=== PATIENT | male | born 1950 | race Caucasian/White ===

== ENCOUNTER 2016-12-09 11:39 | Inpatient (IN) | payer OTHER, MEDICARE ==
[2016-12-09] VITALS (9 sets, daily range): BP systolic 120–162; BP diastolic 66–86; PULSE 54–64; RESP 12–20; TEMP 97.7–98.9; O2SAT 94–95
[~2016-12-09] VITALS: Ht 188 cm; Wt 146.8 kg
[2016-12-09] MEDS ORDERED: METO50TA11 PO (12:25)
[2016-12-09] MEDS ORDERED: ROSU10 PO (12:25)
[2016-12-09 12:50] LABS: AUTOMATED NEUTROPHIL # 5.6 TH/MM3 (1.8-7.7); BASOPHIL % 0.4 % (0.0-2.0); EOSINOPHIL # 0.2 TH/MM3 (0-0.4); EOSINOPHIL % 2.4 % (0.0-4.0); HEMATOCRIT 43.5 % (39.0-51.0); HEMO FLAGS DIFF FINAL; LYMPH % 19.4 % (9.0-44.0); LYMPHOCYTE # 1.6 TH/MM3 (1.0-4.8); MEAN CELL VOLUME 83.8 FL (80.0-100.0); MEAN CORPUSCULAR HEMOGLOBIN 27.8 PG (27.0-34.0); MEAN CORPUSCULAR HGB CONC 33.2 % (32.0-36.0); MONO % 8.1 % (0.0-8.0); NEUT % 69.7 % (16.0-70.0); PLATELET COUNT 193 TH/MM3 (150-450); RED BLOOD COUNT 5.19 MIL/MM3 (4.50-5.90); RED CELL DISTRIBUTION WIDTH 13.9 % (11.6-17.2)
[2016-12-09 12:59] LABS: BICARBONATE 27.6 MEQ/L (21.0-32.0); POTASSIUM 4.2 MEQ/L (3.5-5.1)
--- NOTE | 2016-12-09 13:19 | RADRPT ---
EXAM DATE/TIME: 12/09/2016 12:28 [place] COMPARISON: No previous studies available for comparison. INDICATIONS : Patient has had chest pain since last night. MEDICAL HISTORY : Hypertension. SURGICAL HISTORY : None. ENCOUNTER: Initial ACUITY: 1 day PAIN SCORE: 4/10 LOCATION: chest FINDINGS: A single view of the chest demonstrates the lungs to be symmetrically aerated without evidence of mas s, infiltrate or effusion. The cardiomediastinal contours are unremarkable. Osseous structures are intact. CONCLUSION: Normal examination with a markedly elevated left hemidiaphragm. Manuel Burgess MD on December 09, 2016 at 13:17 Board Certified Radiologist. This report was verified electronically.
--- NOTE | 2016-12-09 13:54 | PD ---
HPI Chief Complaint: Chest Pain Time Seen by Provider: 13:53 Travel History International Travel<30 days: No Contact w/Intl Traveler<30days: No Traveled to known affect area: No History of Present Illness HPI 66-year-old male presents to the emergency department via EMS for evaluation of midsternal chest pain that started about 10 AM this morning. He states it did resolve on its own approximately a couple of hours. He received aspirin 325 mg via EMS. He states he declined nitroglycerin because he had it one time in the past and causing him to have a severe headache. The patient denies any history of cardiac problems. He denies ever having an SD in the past. He states he is from [place]. He discharge 66 and is not currently established with a primary care physician due to insurance changes. 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 He does report a history of A. fib, hypertension, hyperlipidemia. He states he currently takes metoprolol and Crestor. Patient denies having any stress test or cardiac catheterization recently. Patient states the pain is completely resolved at this time. He states the pain did not radiate. Other than recent travel from [place], he denies any recent travel or surgery. No hemoptysis. No leg edema. PFSH Past Medical History Cardiovascular Problems: Yes High Cholesterol: Yes Coronary Artery Disease: Yes Tetanus Vaccination: > 5 Years Past Surgical History Other Surgery: Yes (KNEE) Social History Alcohol Use: No Tobacco Use: No Substance Use: No Allergies-Medications (Allergen,Severity, Reaction): Coded Allergies: Demerol (Verified Allergy, Unknown, RASH, 12/09/16) Reported Meds & Prescriptions Reported Meds & Active Scripts Active Reported Metoprolol Succinate ER 24 HR (Metoprolol Succinate) 50 Mg Tab 50 Mg PO DAILY Crestor (Rosuvastatin Calcium) 10 Mg Tab 10 Mg PO HS Review of Systems Except as stated in HPI: all other systems reviewed are Neg Physical Exam Narrative GENERAL: Well-developed well-nourished obese male patient, afebrile. SKIN: Warm and dry. HEAD: Normocephalic. Atraumatic. EYES: No scleral icterus. No injection or drainage. NECK: Supple, trachea midline. No JVD or lymphadenopathy. CARDIOVASCULAR: Regular rate and rhythm without murmurs, gallops, or rubs. RESPIRATORY: Breath sounds equal bilaterally. No accessory muscle use. Lungs sounds are clear to auscultation. GASTROINTESTINAL: Abdomen soft, non-tender, nondistended. MUSCULOSKELETAL: No cyanosis, or edema. BACK: Nontender without obvious deformity. No CVA tenderness. Data Data Last Documented VS Vital Signs Date Time Temp Pulse Resp B/P Pulse Ox O2 Delivery O2 Flow Rate FiO2 12/09/16 12:16 97.7 57 20 162/80 95 Orders Electrocardiogram (12/09/16 12:25) Complete Blood Count With Diff (12/09/16 12:25) Basic Metabolic Panel (Bmp) (12/09/16 12:25) Ckmb (Isoenzyme) Profile (12/09/16 12:25) Troponin I (12/09/16 12:25) Iv Access Insert/Monitor (12/09/16 12:25) Chest, Single Ap (12/09/16 12:25) Heparin Infusion MONSE.Q1H (12/09/16 13:54) Heparin Inj (Heparin Inj) (12/09/16 14:00) Heparin Inj (Heparin Inj) (12/09/16 20:00) Heparin Inj (Heparin Inj) (12/09/16 20:00) Heparin-D5w Inj (Heparin-D5w Inj) (12/09/16 14:00) Act Partial Throm Time (Ptt) (12/09/16 13:54) Prothrombin Time / Inr (Pt) (12/09/16 13:54) Cbc No Diff, Includes Plts (12/09/16 13:54) Cbc No Diff, Includes Plts (12/12/16 06:00) Act Partial Throm Time (Ptt) (12/09/16 20:54) Occult Blood (Hemoccult) Stool (12/09/16 13:54) Consult Cardiology (12/09/16 ) Diet Npo (12/09/16 Dinner) Admit Order (Ed Use Only) (12/09/16 14:27) Labs Laboratory Tests Test 12/09/16 12/09/16 12:30 14:20 White Blood Count 8.0 TH/MM3 10.5 TH/MM3 Red Blood Count 5.19 MIL/MM3 5.34 MIL/MM3 Hemoglobin 14.4 GM/DL 14.9 GM/DL Hematocrit 43.5 % 45.3 % Mean Corpuscular Volume 83.8 FL 84.7 FL Mean Corpuscular Hemoglobin 27.8 PG 27.8 PG Mean Corpuscular Hemoglobin 33.2 % 32.9 % Concent Red Cell Distribution Width 13.9 % 13.6 % Platelet Count 193 TH/MM3 219 TH/MM3 Mean Platelet Volume 9.6 FL 9.8 FL Neutrophils (%) (Auto) 69.7 % Lymphocytes (%) (Auto) 19.4 % Monocytes (%) (Auto) 8.1 % Eosinophils (%) (Auto) 2.4 % Basophils (%) (Auto) 0.4 % Neutrophils # (Auto) 5.6 TH/MM3 Lymphocytes # (Auto) 1.6 TH/MM3 Monocytes # (Auto) 0.6 TH/MM3 Eosinophils # (Auto) 0.2 TH/MM3 Basophils # (Auto) 0.0 TH/MM3 CBC Comment DIFF FINAL Differential Comment Sodium Level 140 MEQ/L Potassium Level 4.2 MEQ/L Chloride Level 105 MEQ/L Carbon Dioxide Level 27.6 MEQ/L Anion Gap 7 MEQ/L Blood Urea Nitrogen 13 MG/DL Creatinine 1.06 MG/DL Estimat Glomerular Filtration 70 ML/MIN Rate Random Glucose 136 MG/DL Calcium Level 8.4 MG/DL Total Creatine Kinase 70 U/L Troponin I 0.14 NG/ML Prothrombin Time 11.6 SEC Prothromb Time International 1.0 RATIO Ratio Activated Partial 27.7 SEC Thromboplast Time MDM Medical Decision Making Medical Screen Exam Complete: Yes Emergency Medical Condition: Yes Medical Record Reviewed: Yes Interpretation(s) Last Impressions Chest X-Ray 12/09/16 1225 Signed Impressions: Service Date/Time: December 12:28 - CONCLUSION: Normal examination with a markedly elevated left hemidiaphragm. Manuel Burgess MD Differential Diagnosis STEMI versus NSTEMI versus reflux versus chest wall pain for selection abnormality versus pneumonia Narrative Course 66-year-old male presents to the emergency department for evaluation and midsternal chest pain. Patient was previously unable tolerate protocols were completed. CBC was unremarkable. BMP shows glucose of 136. CK is 70. Troponin is elevated 0.14. Chest x-ray showed no acute abnormality. EKG shows ST depression in V4, V5, V6. Patient is started on heparin drip for NSTEMI. Conduit Installer concaving machine operator is paged. I spoke to Dr. Larsen, fruit rancher concaving machine operator. He'll like the patient to be placed on heparin drip which was previously ordered. He also like nitroglycerin , which the patient declines. He would also like the patient to be nothing by mouth. [facility] is paged for admission. Dr. Tam accepted admission. I was notified that the patient has [employer] insurance and fruit rancher should be Dr. Phelps, not Dr. Larsen. I spoke to Dr. Pinzon would like the patient be nothing by mouth after midnight and stay on a heparin drip. Diagnosis Primary Impression: Non-ST elevation myocardial infarction (NSTEMI) Admitting Information Admitting Physician Requests: Admit Jeannine Krishnan Dec 09, 2016 13:54
[2016-12-09] MEDS ORDERED: HEPARIN-D5W INJ 250 ML IV SCH (14:00)
[2016-12-09] MEDS ORDERED: HEPARIN SODIUM - IV 10,000 UNITS/10 ML VIAL IV ONE (14:00)
[2016-12-09 15:23] LABS: HEMATOCRIT 45.3 % (39.0-51.0); MEAN CELL VOLUME 84.7 FL (80.0-100.0); MEAN CORPUSCULAR HEMOGLOBIN 27.8 PG (27.0-34.0); MEAN CORPUSCULAR HGB CONC 32.9 % (32.0-36.0); PLATELET COUNT 219 TH/MM3 (150-450); RED BLOOD COUNT 5.34 MIL/MM3 (4.50-5.90); RED CELL DISTRIBUTION WIDTH 13.6 % (11.6-17.2); REVIEW FLAG FINAL; WHITE BLOOD COUNT 10.5 TH/MM3 (4.0-11.0)
[2016-12-09] MEDS ORDERED: MORPHINE SULFATE 4 MG/ML INJ IV PRN (15:30)
[2016-12-09] MEDS ORDERED: SENNOSIDES 8.6 MG TAB PO PRN (15:30)
[2016-12-09] MEDS ORDERED: ACETAMINOPHEN 325 MG TAB PO PRN (15:30)
[2016-12-09] MEDS ORDERED: ONDANSETRON HCL 4 MG/2 ML VIAL IVP PRN (15:30)
[2016-12-09] MEDS ORDERED: SODIUM CHLORIDE 0.9% FLUSH 5 ML FLUSH FLUSH PRN (15:30)
[2016-12-09] MEDS ORDERED: NALOXONE HCL 0.4 MG/ML AMP IV PRN (15:30)
[2016-12-09 15:40] LABS: APTT (PATIENT) 27.7 SEC (24.3-30.1); PROTHROMBIN TIME - PATIENT 11.6 SEC (9.8-11.6)
[2016-12-09] MEDS ORDERED: ENALAPRILAT 1.25 MG/ML VIAL IV PUSH PRN (16:15)
--- NOTE | 2016-12-09 16:16 | HHI.HP ---
HPI Service [facility] Primary Care Physician Non-Staff Admission Diagnosis NSTEMI Diagnoses: Chief Complaint: Chest pain Travel History International Travel<30 Days: No Contact w/Intl Traveler <30 Da: No Traveled to Known Affected Are: No History of Present Illness The patient is a 66-year-old male with past medical history of atrial fibrillation and hypertension who is presenting to the hospital with chest pain. He said he was sitting down this morning when all of a sudden he developed chest pain in the center of his chest. He said the sensation was stabbing in nature and he rated the pain as an 8 out of 10 in severity. He said once the chest pain occurred it stayed. He did not have any sweating or shortness of breath associated with it. He also denied any palpitations. He did feel tired during the episode. He called for EMS and refused the nitroglycerin because he has had a bad experience with that in the past. He said he has had chest pain which turned out to be secondary to hiatal hernia and when he received nitroglycerin at that time he had a significant headache. The patient received aspirin and was transported to the hospital. He said his chest pain has since gone away. He says he had an echocardiogram done within the past year secondary to his atrial fibrillation. He said he was started on metoprolol and since he has been on that he has not had palpitations. He says he takes aspirin but not every day. He says he has a poor diet and does not exercise. He also endorses symptoms consistent with sleep apnea. Review of Systems Constitutional: COMPLAINS OF: Diaphoretic episodes, Night Sweats Respiratory: DENIES: Shortness of breath Cardiovascular: COMPLAINS OF: Chest pain, DENIES: Palpitations Except as stated in HPI: all other systems reviewed are Neg Past Family Social History Past Medical History Atrial fibrillation Hypertension Hyperlipidemia Hiatal hernia Past Surgical History Right quadricep surgery Left leg surgery Allergies: Coded Allergies: Demerol (Verified Allergy, Unknown, RASH, 12/09/16) Active Ordered Medications Current Medications Medications (Trade) Dose Ordered Sig/Adama Route Start Time Stop Time Status Last Admin (Heparin Inj) 5,000 units UNSCH PRN IV 12/09/16 20:00 Heparin Sodium (Porcine) 2500 units 2,500 units UNSCH PRN IV 12/09/16 20:00 (Heparin-D5W Inj) 250 ml @ 0 mls/hr TITRATE IV 12/09/16 14:00 12/09/16 14:41 (Toprol Xl) 50 mg DAILY PO 12/10/16 09:00 (Lipitor) 20 mg HS PO 12/09/16 21:00 (NS Flush) 2 ml UNSCH PRN FLUSH 12/09/16 15:30 (NS Flush) 2 ml BID FLUSH 12/09/16 21:00 (Zofran Inj) 4 mg Q6H PRN IVP 12/09/16 15:30 (Colace) 100 mg Q12H PO 12/09/16 16:00 (Senokot) 17.2 mg Q12H PRN PO 12/09/16 15:30 (Ambien) 5 mg HS PRN PO 12/09/16 21:00 (Tylenol) 650 mg Q6H PRN PO 12/09/16 15:30 (Roxicodone) 10 mg Q4H PRN PO 12/09/16 15:30 (Morphine Inj) 4 mg Q3H PRN IV 12/09/16 15:30 (Roxicodone) 5 mg Q4H PRN PO 12/09/16 15:30 (Narcan Inj) 0.4 mg UNSCH PRN IV 12/09/16 15:30 (Vasotec Inj) 1.25 mg Q6H PRN IV PUSH 12/09/16 16:15 UNV Family History His father at the age of 70 from a heart attack. Social History He denies smoking. He has social alcohol use. Physical Exam Vital Signs Vital Signs Date Time Temp Pulse Resp B/P Pulse Ox O2 Delivery O2 Flow Rate FiO2 12/09/16 14:45 97.8 58 20 120/66 95 Room Air 12/09/16 14:45 18 96 Room Air 12/09/16 12:16 97.7 57 20 162/80 95 Physical Exam GENERAL: This is a well-nourished, well-developed patient, in no apparent distress. SKIN: No rashes, ecchymoses or lesions. Cool and dry. HEAD: Atraumatic. Normocephalic. No temporal or scalp tenderness. EYES: Pupils equal round and reactive. Extraocular motions intact. No scleral icterus. No injection or drainage. ENT: Nose without bleeding, purulent drainage or septal hematoma. Throat without erythema, tonsillar hypertrophy or exudate. Uvula midline. Airway patent. NECK: Trachea midline. No JVD or lymphadenopathy. Supple, nontender, no meningeal signs. CARDIOVASCULAR: Regular rate and rhythm without murmurs, gallops, or rubs. RESPIRATORY: Clear to auscultation. Breath sounds equal bilaterally. No wheezes , rales, or rhonchi. GASTROINTESTINAL: Abdomen obese, non-tender, nondistended. No hepato- splenomegaly, or palpable masses. No guarding. MUSCULOSKELETAL: Extremities without clubbing, cyanosis, or edema. No joint tenderness, effusion, or edema noted. NEUROLOGICAL: Awake and alert. Cranial nerves II through XII intact. Motor and sensory grossly within normal limits. Five out of 5 muscle strength in all muscle groups. Normal speech. PSYCH: Mood and affect appropriate. Laboratory Laboratory Tests Test 12/09/16 12/09/16 12:30 14:20 White Blood Count 8.0 10.5 Red Blood Count 5.19 5.34 Hemoglobin 14.4 14.9 Hematocrit 43.5 45.3 Mean Corpuscular Volume 83.8 84.7 Mean Corpuscular Hemoglobin 27.8 27.8 Mean Corpuscular Hemoglobin 33.2 32.9 Concent Red Cell Distribution Width 13.9 13.6 Platelet Count 193 219 Mean Platelet Volume 9.6 9.8 Neutrophils (%) (Auto) 69.7 Lymphocytes (%) (Auto) 19.4 Monocytes (%) (Auto) 8.1 Eosinophils (%) (Auto) 2.4 Basophils (%) (Auto) 0.4 Neutrophils # (Auto) 5.6 Lymphocytes # (Auto) 1.6 Monocytes # (Auto) 0.6 Eosinophils # (Auto) 0.2 Basophils # (Auto) 0.0 CBC Comment DIFF FINAL Differential Comment Sodium Level 140 Potassium Level 4.2 Chloride Level 105 Carbon Dioxide Level 27.6 Anion Gap 7 Blood Urea Nitrogen 13 Creatinine 1.06 Estimat Glomerular Filtration 70 Rate Random Glucose 136 Calcium Level 8.4 Total Creatine Kinase 70 Troponin I 0.14 Prothrombin Time 11.6 Prothromb Time International 1.0 Ratio Activated Partial 27.7 Thromboplast Time Result Diagram: 12/09/16 1420 12/09/16 1230 Imaging Last Impressions Chest X-Ray 12/09/16 1225 Signed Impressions: Service Date/Time: December 12:28 - CONCLUSION: Normal examination with a markedly elevated left hemidiaphragm. Manuel Burgess MD Assessment and Plan Assessment and Plan NSTEMI The patient developed chest pain in the center of his chest. Troponin was elevated at 0.1 for an EKG showed ST depressions in V4, V5 and V6. Cardiology was consulted and recommended a heparin drip. The patient received aspirin en route to the hospital. - Continue heparin drip. - Monitor on telemetry. - Follow up with cardiology. The patient is currently nothing by mouth for potential catheterization. - Check a lipid profile and hemoglobin A1c. - Continue metoprolol. - Trend troponins and check an EKG in the a.m. - Pain control with a bowel regimen. - Oxygen as needed. Atrial fibrillation The patient takes aspirin but not every day. He does take Toprol-XL on a regular basis. He denies any recent palpitations. Chest pain episode may be secondary to A. fib with RVR. - Telemetry. - Cardiology evaluation pending. - Continue metoprolol and aspirin. Probable EPHRAIM The patient's family reports that the patient sometimes stops breathing for periods of time in his sleep. Oxygen saturation also tends to drop during sleeping. The patient is morbidly obese. The patient likely has undiagnosed sleep apnea. - Outpatient sleep study recommended. - Weight loss recommended. Hyperglycemia May be a stress response. - Check hemoglobin A1c. HTN Blood pressure well controlled at this time. - Continue metoprolol. - Vasotec as needed. PPx: Heparin gtt. Code Status Full. Discussed Condition With Jeannine Krishnan pt, pt's family. Physician Certification 2 Midnight Certification Type: Admission for Inpatient Services Order for Inpatient Services The services are ordered in accordance with Medicare regulations or non- Medicare payer requirements, as applicable. In the case of services not specified as inpatient-only, they are appropriately provided as inpatient services in accordance with the 2-midnight benchmark. Estimated LOS (days): 2 days is the estimated time the patient will need to remain in the hospital, assuming treatment plan goals are met and no additional complications. Post-Hospital Plan: Home Cristiano Tam DO Dec 09, 2016 16:16
[2016-12-09] MEDS: DOCUSATE SODIUM 100 MG CAP PO SCH (16:33)
[2016-12-09] MEDS ORDERED: HEPARIN SODIUM - IV 10,000 UNITS/10 ML VIAL IV PRN (20:00)
[2016-12-09] MEDS ORDERED: ZOLPIDEM TARTRATE 5 MG TAB PO PRN (21:00)
[2016-12-09] MEDS ORDERED: ATORVASTATIN 20 MG TAB PO SCH (21:00)
[2016-12-09 21:11] LABS: HDL CHOLESTEROL 31.5 MG/DL (40.0-60.0); LDL CHOLESTEROL 38 MG/DL (0-99)
[2016-12-09 21:13] LABS: APTT (PATIENT) 29.2 SEC (24.3-30.1)
[2016-12-09 21:41] LABS: HEMOGLOBIN Ao 83.5 %; HEMOGLOBIN LA1C 2.2 %; HEMOGLOBIN P3 4.1 %
--- NOTE | 2016-12-09 22:52 | MB ---
cc: ZEUS COSTELLO DO DATE OF CONSULTATION 12/09/16 REASON FOR CONSULTATION Non STEMI HISTORY OF PRESENT ILLNESS Cesar Kearns is a pleasant 66-year-old male who presented to [place] emergency room on December 09, 2016 due to chest pain. He is over visiting from [place] and met with some people today and then while he was sitting down, he suddenly developed chest pain in the center of his chest. Chest pain was stabbing in nature and did not radiate anywhere. At the time, chest pain was 8/10 in severity. He thought maybe that it was gas and tried to move around, but it never got better. He did not have any sweating or shortness of breath associated with it. Because the pain would not go away, he decided to call EMS. They attempted to give him nitroglycerin, but he previously had a bad experience with it so he refused it. By the time he got to the emergency room, chest pain was gone. He previously took nitro when he had chest pain and it was felt to be secondary to a hiatal hernia and the nitroglycerin gave him a significant headache. On arrival, he was given aspirin. He was found to have a troponin of 0.14 and he was started on a heparin drip. In seeing him, he states that he no longer has chest pain. He had no shortness of breath or diaphoresis when he did have the chest pain. PAST MEDICAL HISTORY 1. Paroxysmal atrial fibrillation 2. Hypertension 3. Hyperlipidemia 4. Hiatal hernia. PAST SURGICAL HISTORY 1. Right quadriceps surgery. 2. Left leg surgery. ALLERGIES DEMEROL MEDICATIONS 1. Metoprolol succinate 50 mg daily 2. Crestor 10 mg every night. FAMILY HISTORY Father at the age of 70 from a heart attack. Denies premature coronary artery disease or sudden cardiac within the family. SOCIAL HISTORY Denies smoking or drug abuse. Does drink alcohol socially. REVIEW OF SYSTEMS 14-systems were reviewed in the history and physical and above. Pertinent positives and negatives above otherwise negative. PHYSICAL EXAMINATION VITAL SIGNS: Temperature 97.8, heart rate 58, blood pressure 120/66, respirations 20, pulse ox 95% on room air. GENERAL: The patient appears well in no acute distress, alert, awake and oriented x3. HEENT: Extraocular muscles intact. Mucous membranes moist. NECK: Supple No JVD at 45 degrees. Carotid upstroke is brisk in nature. HEART: Regular rate and rhythm. Positive first and second heart sounds with no murmurs, gallops or rubs. LUNGS: Clear to auscultation bilaterally. No wheezes, rales or rhonchi. ABDOMEN: Soft, obese, nontender, nondistended. EXTREMITIES: No clubbing, cyanosis or edema. Femoral and distal pulses intact bilaterally. NEUROLOGIC: No focal deficits. SKIN: Warm, dry and intact. OSTEOPATHIC: Mild lordosis. No kyphoscoliosis or paraspinal tender points. LABORATORY FINDINGS Hemoglobin 14.9, hematocrit 45.3, platelets 219. Potassium 4.2, BUN 13, creatinine 1.06, troponin 0.14. CARDIOLOGY STUDIES Electrocardiogram (December 09, 2016 at 12:03) sinus bradycardia at 55 beats per minute, minimal ST depressions laterally. IMPRESSION 1. N-STEMI type 1 versus type 2. 2. Chest pain atypical for coronary insufficiency. 3. EKG with minimal ST depressions laterally. 4. Paroxysmal atrial fibrillation with a CHADSVASc score of 3 (hypertension, age, recent [place]) 5. Probable obstructive sleep apnea, untreated. 6. Hypertension. RECOMMENDATIONS 1. Cesar's chest pain is atypical for coronary insufficiency, although he does have a mild elevation of his troponin. We will continue to check these for three sets. 2. He will be kept n.p.o. after midnight and depending on the results of his troponins, he will undergo an ischemic evaluation whether that be stress testing or cardiac catheterization. Most likely he will have an elevation of his troponins further and we will plan on cardiac catheterization. 3. I explained the risks, benefits and alternatives of cardiac catheterization to him and his and they consent as such. 4. We will continue him on a heparin drip due to his elevation of troponin with his N-STEMI. 5. As far as his atrial fibrillation goes, he has not been placed on outpatient anticoagulants. I will discuss this with him further depending on the results of his ischemic evaluation. 6. I did discuss with him the need for obstructive sleep apnea testing in the future. Further recommendations will be made based on the hospital course. Thank you for allowing me to see Cesar Kearns. If there are any questions, please do not hesitate to call. Zeus Costello DO VGP/SA /6:32 PM /10:31 PM MTDGiorgio
[2016-12-09] MEDS: HEPARIN SODIUM - IV 10,000 UNITS/10 ML VIAL IV PRN (23:19)
[2016-12-09] MEDS: SODIUM CHLORIDE 0.9% FLUSH 5 ML FLUSH FLUSH SCH (23:20)
[2016-12-10] VITALS (34 sets, daily range): BP systolic 138–158; BP diastolic 83–92; PULSE 39–68; RESP 8–20; TEMP 98–98.6; O2SAT 94–97
[2016-12-10] MEDS: DOCUSATE SODIUM 100 MG CAP PO SCH ×2 (04:00→16:49)
[2016-12-10 05:45] LABS: BASOPHIL % 0.4 % (0.0-2.0); EOSINOPHIL # 0.2 TH/MM3 (0-0.4); EOSINOPHIL % 2.2 % (0.0-4.0); HEMATOCRIT 42.3 % (39.0-51.0); HEMO FLAGS DIFF FINAL; LYMPH % 31.6 % (9.0-44.0); LYMPHOCYTE # 2.8 TH/MM3 (1.0-4.8); MEAN CELL VOLUME 83.9 FL (80.0-100.0); MEAN CORPUSCULAR HEMOGLOBIN 28.2 PG (27.0-34.0); MEAN CORPUSCULAR HGB CONC 33.6 % (32.0-36.0); NEUT % 56.8 % (16.0-70.0); PLATELET COUNT 177 TH/MM3 (150-450); RED BLOOD COUNT 5.04 MIL/MM3 (4.50-5.90); RED CELL DISTRIBUTION WIDTH 13.7 % (11.6-17.2); WHITE BLOOD COUNT 8.7 TH/MM3 (4.0-11.0)
[2016-12-10 05:55] LABS: APTT (PATIENT) 32.6 SEC (24.3-30.1)
[2016-12-10 06:04] LABS: BICARBONATE 31.1 MEQ/L (21.0-32.0); POTASSIUM 4.2 MEQ/L (3.5-5.1)
[2016-12-10] MEDS: HEPARIN SODIUM - IV 10,000 UNITS/10 ML VIAL IV PRN (07:31)
[2016-12-10] MEDS ORDERED: HEPARIN-NS/PF INJ 500 ML ONE ×2 (08:05→08:52)
[2016-12-10] MEDS ORDERED: HEPARIN SODIUM - IV 10,000 UNITS/10 ML VIAL ONE ×2 (08:06→08:50)
[2016-12-10] MEDS ORDERED: NITROGLYCERIN INJ 5 ML ONE (08:06)
[2016-12-10] MEDS ORDERED: VERAPAMIL HCL 5 MG/2 ML VIAL ONE (08:06)
[2016-12-10] MEDS ORDERED: MIDAZOLAM HCL 2 MG/2 ML VIAL ONE (08:17)
[2016-12-10] MEDS ORDERED: TICAGRELOR 90 MG TAB PO ONE (09:05)
[2016-12-10] MEDS ORDERED: IOHEXOL 350 MG/ML 100 ML BTL (for Cath Lab) OTHER ONE (09:30)
[2016-12-10] MEDS ORDERED: SODIUM CHLORIDE 0.9% FLUSH 5 ML FLUSH IVF PRN (09:45)
[2016-12-10] MEDS: METOPROLOL SUCCINATE 50 MG EXTENDED RELEASE TAB PO SCH (10:00)
[2016-12-10] MEDS: ASPIRIN 81 MG CHEW TAB CHEW SCH (10:01)
[2016-12-10] MEDS: SODIUM CHLORIDE 0.9% FLUSH 5 ML FLUSH FLUSH SCH ×2 (10:02→22:44)
--- NOTE | 2016-12-10 12:37 | EC ---
Study Study Date:12/10/2016 STUDY CONCLUSIONS SUMMARY - Left ventricle: The cavity size was normal. Wall thickness was increased in a pattern of mild LVH. Systolic function was vigorous. The estimated ejection fraction was in the range of 65% to 70%. Wall motion was normal; there were no regional wall motion abnormalities. - Aortic valve: Valve area: 3.03cm^2(VTI). Valve area: 2.41cm^2 (Vmax). - Mitral valve: Mild regurgitation. If LV function is below 40, please consider prescribing an ACEI or ARB or document rationale for non-use. PROCEDURE DATA STUDY STATUS: Elective. Procedure: Transthoracic echocardiography. Image quality was good. Scanning was performed from the parasternal, apical, and subcostal acoustic windows. Study completion: The patient tolerated the procedure well. Transthoracic echocardiography. M-mode, complete 2D, complete spectral Doppler, and color Doppler. Height: Height: 74in. Weight: Weight: 329.3lb. Body mass index: BMI: 42.4kg/m^2. Body surface area: BSA: 2.69m^2. Patient status: Inpatient. CARDIAC ANATOMY LEFT VENTRICLE: The cavity size was normal. Wall thickness was increased in a pattern of mild LVH. Systolic function was vigorous. The estimated ejection fraction was in the range of 65% to 70%. Wall motion was normal; there were no regional wall motion abnormalities. AORTIC VALVE: Trileaflet; normal thickness leaflets. Doppler: Transvalvular velocity was within the normal range. There was no stenosis. No regurgitation. Valve area: 3.03cm^2(VTI). Indexed valve area: 1.13cm^2/m^2 (VTI). Valve area: 2.41cm^2 (Vmax). Indexed valve area: 0.9cm^2/m^2 (Vmax). Mean gradient: 4mm Hg (S). AORTA: Aortic root: The aortic root was normal in size. MITRAL VALVE: Structurally normal valve. Doppler: Transvalvular velocity was within the normal range. There was no evidence for stenosis. Mild regurgitation. Peak gradient: 2mm Hg (D). LEFT ATRIUM: The atrium was normal in size. RIGHT VENTRICLE: The cavity size was normal. Wall thickness was normal. PULMONIC VALVE: Doppler: Transvalvular velocity was within the normal range. There was no evidence for stenosis. No regurgitation. TRICUSPID VALVE: Structurally normal valve. Doppler: Transvalvular velocity was within the normal range. No regurgitation. PULMONARY ARTERY: The main pulmonary artery was normal-sized. Systolic pressure was within the normal range. RIGHT ATRIUM: The atrium was normal in size. PERICARDIUM: There was no pericardial effusion. SYSTEMIC VEINS: Inferior vena cava: The vessel was normal in size. Patient weight: 329.3lb _Ejection fraction:_ 65-75% _Fractional shortening:_ 32% up to 5Kg 5-11.5Kg 11.6-22.9Kg 23-45Kg 45-57Kg Aortic Root 7-13 <17 13-22 17-27 17-27 LA diam 6-13 <23 24-38 33-47 37-40 RVID 10-17 7-15 7-15 7-18 8-17 LVIDd 12-22 <32 24-38 33-47 37-40 LVPW 2-4 3-6 5-7 6-8 7-8 IVS 2-4 3-6 5-7 6-8 7-8 BASIC MEASUREMENTS ADULT NORMAL Left ventricle LV internal dimension, ED, chordal 46.7 mm 43-52 level, PLAX LV internal dimension, ES, chordal 27.5 mm 23-38 level, PLAX Fractional shortening, chordal level, 41 % >29 PLAX LV posterior wall thickness, ED 12.2 mm IVS/LVPW ratio, ED 1.06 <1.3 Ventricular septum Septal thickness, ED 12.9 mm Aortic valve Leaflet separation 23 mm 15-26 Aorta Root diameter, ED 33 mm Left atrium Anterior-posterior dimension 35 mm Anterior-posterior dimension index 1.3 cm/m^2 <2.2 BASIC MEASUREMENTS ADULT NORMAL Aortic valve Leaflet separation 23 mm 15-26 DOPPLER MEASUREMENTS ADULT NORMAL Aortic valve Peak velocity, S 148 cm/s Mean velocity, S 91 cm/s VTI, S 24.8 cm Mean gradient, S 4 mm Hg Valve area, VTI 3.03 cm^2 Valve area index, VTI 1.13 cm^2/m^2 Valve area, Vmax 2.41 cm^2 Valve area index, Vmax 0.9 cm^2/m^2 Mitral valve Peak E-wave velocity 72.6 cm/s Peak A-wave velocity 93.8 cm/s Deceleration time *236 ms 150-230 Peak gradient, D 2 mm Hg Peak E/A ratio 0.8 Pulmonic valve Peak velocity, S 58.7 cm/s LEGEND: Mean values are shown as u=mean value. Asterisk (*) torres values outside specified normal range. Prepared and signed by [employer] [id number]
--- NOTE | 2016-12-10 13:09 | PD.CARD.PN ---
Subjective Subjective Remarks Post cardiac catheterization, doing well, no chest pain, no shortness of breath Objective Medications Current Medications Medications (Trade) Dose Ordered Sig/Adama Route Start Time Stop Time Status Last Admin (Toprol Xl) 50 mg DAILY PO 12/10/16 09:00 12/10/16 10:00 (NS Flush) 2 ml UNSCH PRN FLUSH 12/09/16 15:30 (NS Flush) 2 ml BID FLUSH 12/09/16 21:00 12/10/16 10:02 (Zofran Inj) 4 mg Q6H PRN IVP 12/09/16 15:30 (Colace) 100 mg Q12H PO 12/09/16 16:00 12/09/16 16:33 (Senokot) 17.2 mg Q12H PRN PO 12/09/16 15:30 (Ambien) 5 mg HS PRN PO 12/09/16 21:00 (Tylenol) 650 mg Q6H PRN PO 12/09/16 15:30 (Roxicodone) 10 mg Q4H PRN PO 12/09/16 15:30 (Morphine Inj) 4 mg Q3H PRN IV 12/09/16 15:30 (Roxicodone) 5 mg Q4H PRN PO 12/09/16 15:30 (Narcan Inj) 0.4 mg UNSCH PRN IV 12/09/16 15:30 (Vasotec Inj) 1.25 mg Q6H PRN IV PUSH 12/09/16 16:15 (Aspirin Chew) 81 mg DAILY CHEW 12/10/16 09:00 12/10/16 10:01 Patient Own Medication PT OWN MED: CRESTOR... HS PO 12/10/16 21:00 Future Hold (Brilinta) 90 mg BID PO 12/10/16 21:00 (NS Flush) 2 ml UNSCH PRN IVF 12/10/16 09:45 (NS Flush) 2 ml BID IVF 12/10/16 21:00 (Heparin Inj) 5,000 units Q8H SQ 12/10/16 21:00 (Prinivil) 5 mg DAILY PO 12/11/16 09:00 Vital Signs / I&O Vital Signs Date Time Temp Pulse Resp B/P Pulse Ox O2 Delivery O2 Flow Rate FiO2 12/10/16 12:30 158/89 3/3/17 12:00 53 12/10/16 12:00 148/86 12/10/16 11:45 52 16 155/88 12/10/16 11:30 98.3 53 148/88 12/10/16 11:00 98.6 52 18 150/88 12/10/16 11:00 52 12/10/16 11:00 58 20 152/84 12/10/16 10:45 150/86 12/10/16 10:15 68 20 150/84 12/10/16 10:00 64 12/10/16 10:00 65 148/86 12/10/16 09:45 148/86 12/10/16 09:45 98.3 64 20 146/84 12/10/16 07:00 98.3 59 18 138/83 12/10/16 07:00 59 12/10/16 06:04 94 12/10/16 06:00 54 12/10/16 05:00 54 12/10/16 04:00 54 12/10/16 03:00 98.1 57 16 153/92 95 12/10/16 03:00 50 12/10/16 02:00 60 12/10/16 01:00 48 12/10/16 00:00 54 12/09/16 23:30 98.9 59 18 155/85 94 12/09/16 23:00 64 12/09/16 22:00 58 12/09/16 21:30 98.2 56 12 145/86 94 12/09/16 21:00 54 12/09/16 18:42 59 18 156/81 95 Room Air 12/09/16 17:41 95 21 12/09/16 14:45 97.8 58 20 120/66 95 Room Air 12/09/16 14:45 18 96 Room Air I/O 12/09/16 12/09/16 12/09/16 12/10/16 12/10/16 12/10/16 07:00 15:00 23:00 07:00 15:00 23:00 Intake Total 200 ml 240 ml Output Total 225 ml Balance 200 ml 15 ml Intake Oral 200 ml 240 ml Output Urine Total 225 ml # Voids 1 # Bowel Movements 0 Physical Exam GENERAL: NAD, AAOx3 SKIN: Warm and dry. HEAD: Atraumatic. Normocephalic. EYES: Pupils equal and round. No scleral icterus. No injection or drainage. ENT: No nasal bleeding or discharge. Mucous membranes pink and moist. NECK: Trachea midline. No JVD. CARDIOVASCULAR: Regular rate and rhythm. RESPIRATORY: No accessory muscle use. Clear to auscultation. Breath sounds equal bilaterally. GASTROINTESTINAL: Abdomen soft, non-tender, nondistended. Hepatic and splenic margins not palpable. MUSCULOSKELETAL: Extremities without clubbing, cyanosis, or edema. No obvious deformities. Right radial no hematoma, neurovascularly intact distally NEUROLOGICAL: Awake and alert. No obvious cranial nerve deficits. Motor grossly within normal limits. Five out of 5 muscle strength in the arms and legs. Normal speech. PSYCHIATRIC: Appropriate mood and affect; insight and judgment normal. Laboratory Laboratory Tests Test 12/09/16 12/09/16 12/10/16 12/10/16 14:20 19:55 01:13 05:00 White Blood Count 10.5 TH/MM3 8.7 TH/MM3 Red Blood Count 5.34 MIL/MM3 5.04 MIL/MM3 Hemoglobin 14.9 GM/DL 14.2 GM/DL Hematocrit 45.3 % 42.3 % Mean Corpuscular Volume 84.7 FL 83.9 FL Mean Corpuscular Hemoglobin 27.8 PG 28.2 PG Mean Corpuscular Hemoglobin 32.9 % 33.6 % Concent Red Cell Distribution Width 13.6 % 13.7 % Platelet Count 219 TH/MM3 177 TH/MM3 Mean Platelet Volume 9.8 FL 9.5 FL Prothrombin Time 11.6 SEC Prothromb Time International 1.0 RATIO Ratio Activated Partial 27.7 SEC 29.2 SEC 32.6 SEC Thromboplast Time Hemoglobin A1c 6.7 % Troponin I 2.93 NG/ML 4.57 NG/ML Triglycerides Level 118 MG/DL Cholesterol Level 93 MG/DL LDL Cholesterol 38 MG/DL HDL Cholesterol 31.5 MG/DL Cholesterol/HDL Ratio 2.95 RATIO Neutrophils (%) (Auto) 56.8 % Lymphocytes (%) (Auto) 31.6 % Monocytes (%) (Auto) 9.0 % Eosinophils (%) (Auto) 2.2 % Basophils (%) (Auto) 0.4 % Neutrophils # (Auto) 5.0 TH/MM3 Lymphocytes # (Auto) 2.8 TH/MM3 Monocytes # (Auto) 0.8 TH/MM3 Eosinophils # (Auto) 0.2 TH/MM3 Basophils # (Auto) 0.0 TH/MM3 CBC Comment DIFF FINAL Differential Comment Sodium Level 141 MEQ/L Potassium Level 4.2 MEQ/L Chloride Level 104 MEQ/L Carbon Dioxide Level 31.1 MEQ/L Anion Gap 6 MEQ/L Blood Urea Nitrogen 15 MG/DL Creatinine 1.13 MG/DL Estimat Glomerular Filtration 65 ML/MIN Rate Random Glucose 114 MG/DL Calcium Level 8.9 MG/DL Assessment and Plan Problem List: (1) Non-ST elevation myocardial infarction (NSTEMI) (2) Atrial fibrillation (3) Hypertension Assessment and Plan 1) NSTEMI/CAD s/p LEVON to OM1 2) ASA/Brilinta/BB/Statin 3) CHADSVASC2 = 4 (HTN, age, recent [place], newly diagnosed DM) will plan on starting Eliquis 5mg BID tonight 4) Will go home on triple therapy, discussed with him the risk and benefits of this and he understands 5) Needs to find a coffee roaster in [place] as soon as possible to follow him 6) Recommended EPHRAIM evaluation 7) Plan discharge tomorrow Zeus Phelps DO Dec 10, 2016 13:09
--- NOTE | 2016-12-10 13:12 | HHI.PR ---
Subjective Remarks The patient was sitting up in bed. He tolerated the catheterization well. He said his symptoms have resolved. Cardiology, family and nursing at the bedside. Objective Vitals Vital Signs Date Time Temp Pulse Resp B/P Pulse Ox O2 Delivery O2 Flow Rate FiO2 12/10/16 12:30 158/89 12/10/16 12:00 53 12/10/16 12:00 148/86 12/10/16 11:45 52 16 155/88 12/10/16 11:30 98.3 53 148/88 12/10/16 11:00 98.6 52 18 150/88 12/10/16 11:00 52 12/10/16 11:00 58 20 152/84 12/10/16 10:45 150/86 12/10/16 10:15 68 20 150/84 12/10/16 10:00 64 12/10/16 10:00 65 148/86 12/10/16 09:45 148/86 12/10/16 09:45 98.3 64 20 146/84 12/10/16 07:00 98.3 59 18 138/83 12/10/16 07:00 59 12/10/16 06:04 94 12/10/16 06:00 54 12/10/16 05:00 54 12/10/16 04:00 54 12/10/16 03:00 98.1 57 16 153/92 95 12/10/16 03:00 50 12/10/16 02:00 60 12/10/16 01:00 48 12/10/16 00:00 54 12/09/16 23:30 98.9 59 18 155/85 94 12/09/16 23:00 64 12/09/16 22:00 58 12/09/16 21:30 98.2 56 12 145/86 94 12/09/16 21:00 54 12/09/16 18:42 59 18 156/81 95 Room Air 12/09/16 17:41 95 21 12/09/16 14:45 97.8 58 20 120/66 95 Room Air 12/09/16 14:45 18 96 Room Air I/O 12/09/16 12/09/16 12/09/16 12/10/16 12/10/16 12/10/16 07:00 15:00 23:00 07:00 15:00 23:00 Intake Total 200 ml 240 ml Output Total 225 ml Balance 200 ml 15 ml Intake Oral 200 ml 240 ml Output Urine Total 225 ml # Voids 1 # Bowel Movements 0 Result Diagram: 12/10/16 0500 12/10/16 0500 Imaging Last Impressions Chest X-Ray 12/09/16 1225 Signed Impressions: Service Date/Time: December 12:28 - CONCLUSION: Normal examination with a markedly elevated left hemidiaphragm. Manuel Burgess MD Objective Remarks GENERAL: This is a well-nourished, well-developed patient, in no apparent distress. SKIN: No rashes, ecchymoses or lesions. Cool and dry. HEAD: Atraumatic. Normocephalic. No temporal or scalp tenderness. EYES: Pupils equal round and reactive. Extraocular motions intact. No scleral icterus. No injection or drainage. ENT: Nose without bleeding, purulent drainage or septal hematoma. Throat without erythema, tonsillar hypertrophy or exudate. Uvula midline. Airway patent. NECK: Trachea midline. No JVD or lymphadenopathy. Supple, nontender, no meningeal signs. CARDIOVASCULAR: Regular rate and rhythm without murmurs, gallops, or rubs. RESPIRATORY: Clear to auscultation. Breath sounds equal bilaterally. No wheezes , rales, or rhonchi. GASTROINTESTINAL: Abdomen obese, non-tender, nondistended. No hepato- splenomegaly, or palpable masses. No guarding. MUSCULOSKELETAL: Extremities without clubbing, cyanosis, or edema. No joint tenderness, effusion, or edema noted. NEUROLOGICAL: Awake and alert. Cranial nerves II through XII intact. Motor and sensory grossly within normal limits. Five out of 5 muscle strength in all muscle groups. Normal speech. PSYCH: Mood and affect appropriate. Procedures Cardiac catheterization 12/10. Medications and IVs Current Medications Medications (Trade) Dose Ordered Sig/Adama Route Start Time Stop Time Status Last Admin (Toprol Xl) 50 mg DAILY PO 12/10/16 09:00 12/10/16 10:00 (NS Flush) 2 ml UNSCH PRN FLUSH 12/09/16 15:30 (NS Flush) 2 ml BID FLUSH 12/09/16 21:00 12/10/16 10:02 (Zofran Inj) 4 mg Q6H PRN IVP 12/09/16 15:30 (Colace) 100 mg Q12H PO 12/09/16 16:00 12/09/16 16:33 (Senokot) 17.2 mg Q12H PRN PO 12/09/16 15:30 (Ambien) 5 mg HS PRN PO 12/09/16 21:00 (Tylenol) 650 mg Q6H PRN PO 12/09/16 15:30 (Roxicodone) 10 mg Q4H PRN PO 12/09/16 15:30 (Morphine Inj) 4 mg Q3H PRN IV 12/09/16 15:30 (Roxicodone) 5 mg Q4H PRN PO 12/09/16 15:30 (Narcan Inj) 0.4 mg UNSCH PRN IV 12/09/16 15:30 (Vasotec Inj) 1.25 mg Q6H PRN IV PUSH 12/09/16 16:15 (Aspirin Chew) 81 mg DAILY CHEW 12/10/16 09:00 12/10/16 10:01 Patient Own Medication PT OWN MED: CRESTOR... HS PO 12/10/16 21:00 Future Hold (Brilinta) 90 mg BID PO 12/10/16 21:00 (NS Flush) 2 ml UNSCH PRN IVF 12/10/16 09:45 (NS Flush) 2 ml BID IVF 12/10/16 21:00 (Heparin Inj) 5,000 units Q8H SQ 12/10/16 21:00 (Prinivil) 5 mg DAILY PO 12/11/16 09:00 A/P Assessment and Plan NSTEMI The patient developed chest pain in the center of his chest. Troponin was elevated up to 4.[address] depressions in V4, V5 and V6. Cardiology was consulted and recommended a heparin drip. The patient received aspirin en route to the hospital. S/p cardiac cath and stent placement to the 12/10. - Monitor on telemetry. - Follow up with cardiology. - Continue ASA, Plavix, metoprolol and statin. - Pain control with a bowel regimen. - Oxygen as needed. Atrial fibrillation The patient takes aspirin but not every day. He does take Toprol-XL on a regular basis. He denies any recent palpitations. Chest pain episode may be secondary to A. fib with RVR. - Telemetry. - Continue metoprolol and aspirin. Add Eliquis at discharge per cardiology. Probable EPHRAIM The patient's family reports that the patient sometimes stops breathing for periods of time in his sleep. Oxygen saturation also tends to drop during sleeping. The patient is morbidly obese. The patient likely has undiagnosed sleep apnea. - Outpatient sleep study recommended. - Weight loss recommended. DM New diagnosis. A1c level 6.7%. - lifestyle modifications recommended. - manager helpdesk consult requested. - follow up as an outpt. HTN Blood pressure somewhat elevated. - Continue metoprolol. - Vasotec as needed. PPx: Heparin. Discharge Planning Anticipate d/c home in AM. Cristiano Tam DO Dec 10, 2016 13:12
[2016-12-10] MEDS ORDERED: CRESTOR 10 MG PO SCH (21:00)
[2016-12-10] MEDS ORDERED: HEPARIN SODIUM - SQ 10,000 UNITS/ML VIAL SQ SCH (21:00)
[2016-12-10] MEDS: SODIUM CHLORIDE 0.9% FLUSH 5 ML FLUSH IVF SCH (21:00)
[2016-12-10] MEDS ORDERED: TICAGRELOR 90 MG TAB PO SCH (21:00)
[2016-12-10] MEDS: APIXABAN 5 MG TABLET PO SCH (22:43)
--- NOTE | 2016-12-10 23:39 | EKG ---
Date Performed: 12/09/2016 Time Performed: 12:03:45 PTAGE: 66 years EKG: SINUS BRADYCARDIA MODERATE ST DEPRESSION ABNORMAL ECG NO PREVIOUS TRACING DOCTOR: Stanford Huff Interpretating Date/Time 12/10/2016 23:37:56
[2016-12-11] VITALS (29 sets, daily range): BP systolic 123–145; BP diastolic 63–81; PULSE 33–68; RESP 16–20; TEMP 97.9–98.6; O2SAT 93–95
[2016-12-11] MEDS: DOCUSATE SODIUM 100 MG CAP PO SCH ×3 (04:00→16:17)
[2016-12-11 06:38] LABS: AUTOMATED NEUTROPHIL # 5.7 TH/MM3 (1.8-7.7); BASOPHIL # 0.1 TH/MM3 (0-0.2); BASOPHIL % 0.6 % (0.0-2.0); EOSINOPHIL # 0.2 TH/MM3 (0-0.4); EOSINOPHIL % 1.9 % (0.0-4.0); HEMATOCRIT 42.4 % (39.0-51.0); HEMO FLAGS DIFF FINAL; LYMPH % 20.6 % (9.0-44.0); LYMPHOCYTE # 1.8 TH/MM3 (1.0-4.8); MEAN CELL VOLUME 83.9 FL (80.0-100.0); MEAN CORPUSCULAR HEMOGLOBIN 28.1 PG (27.0-34.0); MEAN CORPUSCULAR HGB CONC 33.4 % (32.0-36.0); NEUT % 66.9 % (16.0-70.0); PLATELET COUNT 163 TH/MM3 (150-450); RED BLOOD COUNT 5.05 MIL/MM3 (4.50-5.90); RED CELL DISTRIBUTION WIDTH 13.7 % (11.6-17.2); WHITE BLOOD COUNT 8.5 TH/MM3 (4.0-11.0)
[2016-12-11 06:40] LABS: BICARBONATE 27.1 MEQ/L (21.0-32.0)
[2016-12-11] MEDS: ASPIRIN 81 MG CHEW TAB CHEW SCH (08:45)
[2016-12-11] MEDS: APIXABAN 5 MG TABLET PO SCH ×2 (08:45→22:15)
[2016-12-11] MEDS: CLOPIDOGREL 75 MG TAB PO SCH (08:45)
[2016-12-11] MEDS: METOPROLOL SUCCINATE 50 MG EXTENDED RELEASE TAB PO SCH (08:45)
[2016-12-11] MEDS: SODIUM CHLORIDE 0.9% FLUSH 5 ML FLUSH IVF SCH ×2 (08:48→21:00)
[2016-12-11] MEDS: SODIUM CHLORIDE 0.9% FLUSH 5 ML FLUSH FLUSH SCH ×2 (08:48→22:14)
[2016-12-11] MEDS ORDERED: LISINOPRIL 5 MG TAB PO SCH (09:00)
[2016-12-11] MEDS ORDERED: LISINOPRIL 5 MG TAB PO ONE (10:30)
[2016-12-11] MEDS ORDERED: APIX5TAB PO (10:40)
[2016-12-11] MEDS ORDERED: METO50TA11 PO (10:40)
[2016-12-11] MEDS ORDERED: LISI10TA3 PO (10:40)
[2016-12-11] MEDS ORDERED: ASPI81TA11 PO (10:40)
[2016-12-11] MEDS ORDERED: PLAV75TA29 PO (10:40)
--- NOTE | 2016-12-11 10:45 | HHI.DCPOC ---
Discharge Care Plan Diagnosis: (1) Non-ST elevation myocardial infarction (NSTEMI) (2) Hypertension (3) Atrial fibrillation (4) Bradycardia Goals to Promote Your Health * To prevent worsening of your condition and complications * To maintain your health at the optimal level Directions to Meet Your Goals Take your medications as prescribed Follow your dietary instruction Follow activity as directed Keep your appointments as scheduled Take your immunizations and boosters as scheduled If your symptoms worsen call your PCP, if no PCP go to Urgent Care Center or Emergency Room Smoking is Dangerous to Your Health. Avoid second hand smoke Call the 24-hour hour crisis hotline for domestic abuse at Cristiano Tam DO Dec 11, 2016 10:45
--- NOTE | 2016-12-11 10:52 | HHI.PR ---
Subjective Remarks The pt was looking forward to going home. He said that he knows his heart has been beating slowly at times. He has been ambulating without difficulty. He thinks he might be wheezing a little bit. He said he will work on his diet and exercise. Discussed with nursing. Objective Vitals Vital Signs Date Time Temp Pulse Resp B/P Pulse Ox O2 Delivery O2 Flow Rate FiO2 12/11/16 08:34 97.9 56 16 144/63 94 12/11/16 05:00 52 12/11/16 04:00 62 12/11/16 03:00 50 12/11/16 02:46 55 18 123/70 95 12/11/16 02:40 33 12/11/16 02:00 54 12/11/16 01:00 60 12/11/16 00:00 63 12/10/16 23:00 54 12/10/16 22:49 98.0 58 20 142/85 95 12/10/16 22:39 39 12/10/16 22:00 68 12/10/16 21:38 96 12/10/16 21:00 52 12/10/16 20:00 98.4 55 20 146/83 97 12/10/16 20:00 50 12/10/16 19:00 63 12/10/16 18:00 64 12/10/16 17:00 63 12/10/16 16:00 66 12/10/16 15:00 98.6 50 20 148/86 12/10/16 15:00 54 12/10/16 14:30 50 148/87 12/10/16 13:30 52 8 155/88 12/10/16 13:00 52 12/10/16 12:45 98.6 57 20 155/88 96 12/10/16 12:30 158/89 12/10/16 12:00 53 12/10/16 12:00 148/86 12/10/16 11:45 52 16 155/88 12/10/16 11:30 98.3 53 148/88 12/10/16 11:00 98.6 52 18 150/88 12/10/16 11:00 52 12/10/16 11:00 58 20 152/84 I/O 12/10/16 12/10/16 12/10/16 12/11/16 12/11/16 12/11/16 07:00 15:00 23:00 07:00 15:00 23:00 Intake Total 240 ml 925 ml 220 ml 480 ml Output Total 225 ml 400 ml 200 ml 1150 ml Balance 15 ml 525 ml 20 ml -670 ml Intake Oral 240 ml 200 ml 220 ml 480 ml IV Total 725 ml Output Urine Total 225 ml 400 ml 200 ml 1150 ml # Bowel Movements 0 Result Diagram: 12/11/16 0539 12/11/16 0539 Imaging Last Impressions Chest X-Ray 12/09/16 1225 Signed Impressions: Service Date/Time: December 12:28 - CONCLUSION: Normal examination with a markedly elevated left hemidiaphragm. Manuel Burgess MD Objective Remarks GENERAL: This is a well-nourished, well-developed patient, in no apparent distress. SKIN: No rashes, ecchymoses or lesions. Cool and dry. HEAD: Atraumatic. Normocephalic. No temporal or scalp tenderness. EYES: Pupils equal round and reactive. Extraocular motions intact. No scleral icterus. No injection or drainage. ENT: Nose without bleeding, purulent drainage or septal hematoma. Throat without erythema, tonsillar hypertrophy or exudate. Uvula midline. Airway patent. NECK: Trachea midline. No JVD or lymphadenopathy. Supple, nontender, no meningeal signs. CARDIOVASCULAR: Bradycardic without murmurs, gallops, or rubs. RESPIRATORY: Clear to auscultation. Breath sounds equal bilaterally. No wheezes , rales, or rhonchi. GASTROINTESTINAL: Abdomen obese, non-tender, nondistended. No hepato- splenomegaly, or palpable masses. No guarding. MUSCULOSKELETAL: Extremities without clubbing, cyanosis, or edema. No joint tenderness, effusion, or edema noted. NEUROLOGICAL: Awake and alert. Cranial nerves II through XII intact. Motor and sensory grossly within normal limits. Five out of 5 muscle strength in all muscle groups. Normal speech. PSYCH: Mood and affect appropriate. Procedures Cardiac catheterization 12/10. Medications and IVs Current Medications Medications (Trade) Dose Ordered Sig/Adama Route Start Time Stop Time Status Last Admin (NS Flush) 2 ml UNSCH PRN FLUSH 12/09/16 15:30 (NS Flush) 2 ml BID FLUSH 12/09/16 21:00 12/11/16 08:48 (Zofran Inj) 4 mg Q6H PRN IVP 12/09/16 15:30 (Colace) 100 mg Q12H PO 12/09/16 16:00 12/11/16 05:30 (Senokot) 17.2 mg Q12H PRN PO 12/09/16 15:30 (Ambien) 5 mg HS PRN PO 12/09/16 21:00 (Tylenol) 650 mg Q6H PRN PO 12/09/16 15:30 (Roxicodone) 10 mg Q4H PRN PO 12/09/16 15:30 (Morphine Inj) 4 mg Q3H PRN IV 12/09/16 15:30 (Roxicodone) 5 mg Q4H PRN PO 12/09/16 15:30 (Narcan Inj) 0.4 mg UNSCH PRN IV 12/09/16 15:30 (Vasotec Inj) 1.25 mg Q6H PRN IV PUSH 12/09/16 16:15 (Aspirin Chew) 81 mg DAILY CHEW 12/10/16 09:00 12/11/16 08:45 Patient Own Medication PT OWN MED: CRESTOR... HS PO 12/10/16 21:00 Hold (NS Flush) 2 ml UNSCH PRN IVF 12/10/16 09:45 (NS Flush) 2 ml BID IVF 12/10/16 21:00 (Plavix) 75 mg DAILY PO 12/11/16 09:00 12/11/16 08:45 (Eliquis) 5 mg BID PO 12/10/16 21:00 12/11/16 08:45 (Toprol Xl) 25 mg DAILY PO 12/12/16 09:00 (Prinivil) 10 mg DAILY PO 12/12/16 09:00 A/P Assessment and Plan NSTEMI The patient developed chest pain in the center of his chest. Troponin was elevated up to 4.[address] depressions in V4, V5 and V6. Cardiology was consulted and recommended a heparin drip. The patient received aspirin en route to the hospital. S/p cardiac cath and stent placement to the 12/10. - Monitor on telemetry. - Follow up with cardiology. - Continue ASA, Plavix, metoprolol, ACEi and statin. - Pain control with a bowel regimen. - Oxygen as needed. Atrial fibrillation/ Bradycardia The patient takes aspirin but not every day. He does take Toprol-XL on a regular basis. He denies any recent palpitations. Chest pain episode may be secondary to A. fib with RVR. Has been bradycardic on the monitor. - Telemetry. - Halve metoprolol succinate to 25 mg daily. - per cardiology d/c on Eliquis. Probable EPHRAIM The patient's family reports that the patient sometimes stops breathing for periods of time in his sleep. Oxygen saturation also tends to drop during sleeping. The patient is morbidly obese. The patient likely has undiagnosed sleep apnea. - Outpatient sleep study recommended. - Weight loss recommended. DM New diagnosis. A1c level 6.7%. Dietary consult appreciated. - lifestyle modifications recommended. - follow up as an outpt. HTN Blood pressure somewhat elevated. - metoprolol reduced as above. - increase lisinopril to 10 mg daily and adjust as needed. - Vasotec as needed. PPx: Heparin. Discharge Planning D/c home once cleared by cardiology. Cristiano Tam DO Dec 11, 2016 10:52
--- NOTE | 2016-12-11 13:40 | PD.CARD.PN ---
Subjective Subjective Remarks Feels well, no further CP post NSTEMI with stent placement. 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 Objective Medications Current Medications Medications (Trade) Dose Ordered Sig/Adama Route Start Time Stop Time Status Last Admin (NS Flush) 2 ml UNSCH PRN FLUSH 12/09/16 15:30 (NS Flush) 2 ml BID FLUSH 12/09/16 21:00 12/11/16 08:48 (Zofran Inj) 4 mg Q6H PRN IVP 12/09/16 15:30 (Colace) 100 mg Q12H PO 12/09/16 16:00 12/11/16 05:30 (Senokot) 17.2 mg Q12H PRN PO 12/09/16 15:30 (Ambien) 5 mg HS PRN PO 12/09/16 21:00 (Tylenol) 650 mg Q6H PRN PO 12/09/16 15:30 (Roxicodone) 10 mg Q4H PRN PO 12/09/16 15:30 (Morphine Inj) 4 mg Q3H PRN IV 12/09/16 15:30 (Roxicodone) 5 mg Q4H PRN PO 12/09/16 15:30 (Narcan Inj) 0.4 mg UNSCH PRN IV 12/09/16 15:30 (Vasotec Inj) 1.25 mg Q6H PRN IV PUSH 12/09/16 16:15 (Aspirin Chew) 81 mg DAILY CHEW 12/10/16 09:00 12/11/16 08:45 Patient Own Medication PT OWN MED: CRESTOR... HS PO 12/10/16 21:00 Hold (NS Flush) 2 ml UNSCH PRN IVF 12/10/16 09:45 (NS Flush) 2 ml BID IVF 12/10/16 21:00 (Plavix) 75 mg DAILY PO 12/11/16 09:00 12/11/16 08:45 (Eliquis) 5 mg BID PO 12/10/16 21:00 12/11/16 08:45 (Toprol Xl) 25 mg DAILY PO 12/12/16 09:00 (Prinivil) 10 mg DAILY PO 12/12/16 09:00 Vital Signs / I&O Vital Signs Date Time Temp Pulse Resp B/P Pulse Ox O2 Delivery O2 Flow Rate FiO2 12/11/16 11:15 98.3 59 20 145/75 93 12/11/16 10:00 Room Air 12/11/16 08:34 97.9 56 16 144/63 94 12/11/16 05:00 52 12/11/16 04:00 62 12/11/16 03:00 50 12/11/16 02:46 55 18 123/70 95 12/11/16 02:40 33 12/11/16 02:00 54 12/11/16 01:00 60 12/11/16 00:00 63 12/10/16 23:00 54 12/10/16 22:49 98.0 58 20 142/85 95 12/10/16 22:39 39 12/10/16 22:00 68 12/10/16 21:38 96 12/10/16 21:00 52 12/10/16 20:00 98.4 55 20 146/83 97 12/10/16 20:00 50 12/10/16 19:00 63 12/10/16 18:00 64 12/10/16 17:00 63 12/10/16 16:00 66 12/10/16 15:00 98.6 50 20 148/86 12/10/16 15:00 54 12/10/16 14:30 50 148/87 I/O 12/10/16 12/10/16 12/10/16 12/11/16 12/11/16 12/11/16 07:00 15:00 23:00 07:00 15:00 23:00 Intake Total 240 ml 925 ml 220 ml 480 ml Output Total 225 ml 400 ml 200 ml 1150 ml Balance 15 ml 525 ml 20 ml -670 ml Intake Oral 240 ml 200 ml 220 ml 480 ml IV Total 725 ml Output Urine Total 225 ml 400 ml 200 ml 1150 ml # Bowel Movements 0 Physical Exam Physical Exam GENERAL: NAD, AAOx3 SKIN: Warm and dry. HEAD: Atraumatic. Normocephalic. EYES: Pupils equal and round. No scleral icterus. No injection or drainage. ENT: No nasal bleeding or discharge. Mucous membranes pink and moist. NECK: Trachea midline. No JVD. CARDIOVASCULAR: Regular rate and rhythm. RESPIRATORY: No accessory muscle use. Clear to auscultation. Breath sounds equal bilaterally. GASTROINTESTINAL: Abdomen soft, non-tender, nondistended. Hepatic and splenic margins not palpable. MUSCULOSKELETAL: Extremities without clubbing, cyanosis, or edema. No obvious deformities. Right radial no hematoma, neurovascularly intact distally NEUROLOGICAL: Awake and alert. No obvious cranial nerve deficits. Motor grossly within normal limits. Five out of 5 muscle strength in the arms and legs. Normal speech. PSYCHIATRIC: Appropriate mood and affect; insight and judgment normal. Laboratory Laboratory Tests Test 12/11/16 05:39 White Blood Count 8.5 TH/MM3 Red Blood Count 5.05 MIL/MM3 Hemoglobin 14.2 GM/DL Hematocrit 42.4 % Mean Corpuscular Volume 83.9 FL Mean Corpuscular Hemoglobin 28.1 PG Mean Corpuscular Hemoglobin 33.4 % Concent Red Cell Distribution Width 13.7 % Platelet Count 163 TH/MM3 Mean Platelet Volume 9.5 FL Neutrophils (%) (Auto) 66.9 % Lymphocytes (%) (Auto) 20.6 % Monocytes (%) (Auto) 10.0 % Eosinophils (%) (Auto) 1.9 % Basophils (%) (Auto) 0.6 % Neutrophils # (Auto) 5.7 TH/MM3 Lymphocytes # (Auto) 1.8 TH/MM3 Monocytes # (Auto) 0.9 TH/MM3 Eosinophils # (Auto) 0.2 TH/MM3 Basophils # (Auto) 0.1 TH/MM3 CBC Comment DIFF FINAL Differential Comment Sodium Level 139 MEQ/L Potassium Level 4.0 MEQ/L Chloride Level 103 MEQ/L Carbon Dioxide Level 27.1 MEQ/L Anion Gap 9 MEQ/L Blood Urea Nitrogen 12 MG/DL Creatinine 0.98 MG/DL Estimat Glomerular Filtration 77 ML/MIN Rate Random Glucose 107 MG/DL Calcium Level 8.9 MG/DL Imaging Last Impressions Chest X-Ray 12/09/16 1225 Signed Impressions: Service Date/Time: December 12:28 - CONCLUSION: Normal examination with a markedly elevated left hemidiaphragm. Manuel Burgess MD Assessment and Plan Problem List: (1) Non-ST elevation myocardial infarction (NSTEMI) (2) Atrial fibrillation (3) Hypertension Assessment and Plan 1) NSTEMI/CAD s/p LEVON to OM1- Continue ASA/Plavix/Statin. BB reduced secondary to 2-3 second pauses last night 2) PAF- CHADSVASC2 = 4 (HTN, age, recent [place], newly diagnosed DM) ;Eliquis 5mg BID started last night 3) Will go home on triple therapy; Patient understands risk and benefits of this - reviewed again. Brilinta has been changed to Plavix for his triple therapy, due to concern for bleeding profile on ASA/Eliquis/Brilinta 4) 2-3 second pauses last night- BB reduced to 25mg daily. Hopefully pauses will resolve. I did discuss SSS with patient and the possible need for pacemaker in the future if/or as his PAF becomes more problematic. 5) Needs to find a casting technician in [place] as soon as possible to follow him 6) EPHRAIM evaluation has been recommended. 7) Will hold discharge over the weekend to watch on telemetry a little longer. Discussed Condition With Giovana Del Angel Dec 11, 2016 13:40
[2016-12-12] VITALS (38 sets, daily range): BP systolic 80–142; BP diastolic 52–83; PULSE 48–133; RESP 14–20; TEMP 97.9–98.7; O2SAT 93–95
[2016-12-12] MEDS: DOCUSATE SODIUM 100 MG CAP PO SCH ×2 (04:00→16:33)
[2016-12-12] MEDS ORDERED: DILTIAZEM HCL 25 MG/5 ML VIAL IV ONE (04:45)
[2016-12-12 05:20] LABS: HEMATOCRIT 44.2 % (39.0-51.0); MEAN CELL VOLUME 83.1 FL (80.0-100.0); MEAN CORPUSCULAR HEMOGLOBIN 28.3 PG (27.0-34.0); MEAN CORPUSCULAR HGB CONC 34.1 % (32.0-36.0); PLATELET COUNT 198 TH/MM3 (150-450); RED BLOOD COUNT 5.32 MIL/MM3 (4.50-5.90); RED CELL DISTRIBUTION WIDTH 13.5 % (11.6-17.2); REVIEW FLAG FINAL; WHITE BLOOD COUNT 10.4 TH/MM3 (4.0-11.0)
[2016-12-12] MEDS: METOPROLOL SUCCINATE 50 MG EXTENDED RELEASE TAB PO SCH (09:00)
[2016-12-12] MEDS ORDERED: LISINOPRIL 10 MG TAB PO SCH (09:00)
[2016-12-12] MEDS: SODIUM CHLORIDE 0.9% FLUSH 5 ML FLUSH IVF SCH ×2 (09:00→21:00)
[2016-12-12] MEDS: ASPIRIN 81 MG CHEW TAB CHEW SCH (09:54)
[2016-12-12] MEDS: APIXABAN 5 MG TABLET PO SCH ×2 (09:54→21:13)
[2016-12-12] MEDS: SODIUM CHLORIDE 0.9% FLUSH 5 ML FLUSH FLUSH SCH ×2 (09:54→21:13)
[2016-12-12] MEDS: CLOPIDOGREL 75 MG TAB PO SCH (09:55)
--- NOTE | 2016-12-12 12:51 | PD.CARD.PN ---
Subjective Subjective Remarks Awoke last night around 3am with AF/RVR which lasted for over an hour. Resolved sometime after receiving IV diltiazem. C/O generalized weakness/"blah" this morning with sinus zahra and BB held by nurse but now feels well and assymptomatic Objective Medications Current Medications Medications (Trade) Dose Ordered Sig/Adama Route Start Time Stop Time Status Last Admin (NS Flush) 2 ml UNSCH PRN FLUSH 12/09/16 15:30 (NS Flush) 2 ml BID FLUSH 12/09/16 21:00 12/12/16 09:54 (Zofran Inj) 4 mg Q6H PRN IVP 12/09/16 15:30 (Colace) 100 mg Q12H PO 12/09/16 16:00 12/11/16 16:17 (Senokot) 17.2 mg Q12H PRN PO 12/09/16 15:30 (Ambien) 5 mg HS PRN PO 12/09/16 21:00 (Tylenol) 650 mg Q6H PRN PO 12/09/16 15:30 12/12/16 01:18 (Roxicodone) 10 mg Q4H PRN PO 12/09/16 15:30 (Morphine Inj) 4 mg Q3H PRN IV 12/09/16 15:30 (Roxicodone) 5 mg Q4H PRN PO 12/09/16 15:30 (Narcan Inj) 0.4 mg UNSCH PRN IV 12/09/16 15:30 (Vasotec Inj) 1.25 mg Q6H PRN IV PUSH 12/09/16 16:15 (Aspirin Chew) 81 mg DAILY CHEW 12/10/16 09:00 12/12/16 09:54 Patient Own Medication PT OWN MED: CRESTOR... HS PO 12/10/16 21:00 Hold (NS Flush) 2 ml UNSCH PRN IVF 12/10/16 09:45 (NS Flush) 2 ml BID IVF 12/10/16 21:00 (Plavix) 75 mg DAILY PO 12/11/16 09:00 12/12/16 09:55 (Eliquis) 5 mg BID PO 12/10/16 21:00 12/12/16 09:54 (Toprol Xl) 25 mg DAILY PO 12/12/16 09:00 (Prinivil) 10 mg DAILY PO 12/12/16 09:00 12/12/16 09:59 Vital Signs / I&O Vital Signs Date Time Temp Pulse Resp B/P Pulse Ox O2 Delivery O2 Flow Rate FiO2 12/12/16 11:00 98.7 58 17 125/81 93 12/12/16 10:00 64 12/12/16 09:00 66 12/12/16 08:00 52 12/12/16 07:30 95 Room Air 12/12/16 07:00 55 16 92/56 95 12/12/16 07:00 89 12/12/16 06:42 108 12/12/16 06:41 108 16 92/65 95 12/12/16 06:08 87 12/12/16 05:36 83 18 102/62 95 12/12/16 05:11 74 12/12/16 05:03 68 18 80/52 95 12/12/16 04:43 123 20 142/83 95 12/12/16 04:43 125 12/12/16 04:26 123 12/12/16 04:15 119 12/12/16 04:00 128 12/12/16 03:59 97.9 97 16 96/72 95 12/12/16 03:10 108 12/12/16 03:00 128 12/12/16 02:56 133 12/12/16 02:39 132 12/12/16 02:35 53 12/12/16 02:18 48 12/12/16 02:00 50 12/12/16 01:00 98.1 65 16 118/55 95 12/12/16 01:00 50 12/12/16 00:00 61 12/11/16 23:00 50 12/11/16 22:00 56 12/11/16 21:00 58 12/11/16 20:00 54 12/11/16 20:00 56 18 141/79 94 12/11/16 19:47 Room Air 12/11/16 19:00 68 12/11/16 18:00 65 12/11/16 17:34 95 21 12/11/16 17:02 56 12/11/16 16:18 98.6 57 18 138/81 95 12/11/16 16:00 58 12/11/16 15:00 58 12/11/16 14:00 64 12/11/16 13:00 68 I/O 12/11/16 12/11/16 12/11/16 12/12/16 12/12/16 12/12/16 07:00 15:00 23:00 07:00 15:00 23:00 Intake Total 480 ml 600 ml 240 ml Output Total 1150 ml 1000 ml 800 ml Balance -670 ml -400 ml -560 ml Intake Oral 480 ml 600 ml 240 ml IV Total 0 ml Output Urine Total 1150 ml 1000 ml 800 ml # Bowel Movements 0 1 0 Physical Exam Physical Exam GENERAL: NAD, AAOx3 SKIN: Warm and dry. HEAD: Atraumatic. Normocephalic. EYES: Pupils equal and round. No scleral icterus. No injection or drainage. ENT: No nasal bleeding or discharge. Mucous membranes pink and moist. NECK: Trachea midline. No JVD. CARDIOVASCULAR: slow rate/ regular rhythm. RESPIRATORY: No accessory muscle use. Clear to auscultation. Breath sounds equal bilaterally. GASTROINTESTINAL: Abdomen soft, non-tender, nondistended. Hepatic and splenic margins not palpable. MUSCULOSKELETAL: Extremities without clubbing, cyanosis, or edema. No obvious deformities. Right radial no hematoma, neurovascularly intact distally NEUROLOGICAL: Awake and alert. No obvious cranial nerve deficits. Motor grossly within normal limits. Five out of 5 muscle strength in the arms and legs. Normal speech. PSYCHIATRIC: Appropriate mood and affect; insight and judgment normal. Laboratory Laboratory Tests Test 12/12/16 04:08 White Blood Count 10.4 TH/MM3 Red Blood Count 5.32 MIL/MM3 Hemoglobin 15.1 GM/DL Hematocrit 44.2 % Mean Corpuscular Volume 83.1 FL Mean Corpuscular Hemoglobin 28.3 PG Mean Corpuscular Hemoglobin 34.1 % Concent Red Cell Distribution Width 13.5 % Platelet Count 198 TH/MM3 Mean Platelet Volume 10.1 FL Imaging Last Impressions Chest X-Ray 12/09/16 1225 Signed Impressions: Service Date/Time: December 12:28 - CONCLUSION: Normal examination with a markedly elevated left hemidiaphragm. Manuel Burgess MD Assessment and Plan Problem List: (1) Non-ST elevation myocardial infarction (NSTEMI) (2) Atrial fibrillation (3) Hypertension Assessment and Plan 1) NSTEMI/CAD s/p LEVON to OM1- Continue ASA/Plavix/Statin. BB held this am for what she felt to be symptomatic bradycardia 2) PAF- CHADSVASC2 = 4 (HTN, age, recent [place], newly diagnosed DM) ;Patient is tolerating Eliquis 5mg BID 3) Will go home on triple therapy; Patient understands risk and benefits of this - reviewed again. Brilinta has been changed to Plavix for his triple therapy, due to concern for bleeding profile on ASA/Eliquis/Brilinta 4) 2-3 second pauses Tuesday night- no further pauses noted, but BB was held altogether this am after receiving diltiazem last night for rapid AF. I did discuss SSS with patient and the possible need for pacemaker in the future if/ or as his PAF becomes more problematic. 5) Needs to find a geography teacher in [place] as soon as possible to follow him 6) EPHRAIM evaluation has been recommended. 7) Will hold discharge over the weekend. Dr. Phelps to return Tuesday to resume further cardiac management. Discussed Condition With Giovana Del Angel Dec 12, 2016 12:51
--- NOTE | 2016-12-12 13:52 | HHI.PR ---
Subjective Remarks The patient said that his heart rate was fast overnight and he felt it. He said once he received the IV medication his symptoms resolved. He had questions about possible pacemaker placement and further studies to see if he needs a pacemaker or an ablation. No other acute complaints. Objective Vitals Vital Signs Date Time Temp Pulse Resp B/P Pulse Ox O2 Delivery O2 Flow Rate FiO2 12/12/16 13:00 61 12/12/16 12:00 48 12/12/16 11:00 58 12/12/16 11:00 98.7 58 17 125/81 93 12/12/16 10:00 64 12/12/16 09:00 66 12/12/16 08:00 52 12/12/16 07:30 95 Room Air 12/12/16 07:00 55 16 92/56 95 12/12/16 07:00 89 12/12/16 06:42 108 12/12/16 06:41 108 16 92/65 95 12/12/16 06:08 87 12/12/16 05:36 83 18 102/62 95 12/12/16 05:11 74 12/12/16 05:03 68 18 80/52 95 12/12/16 04:43 123 20 142/83 95 12/12/16 04:43 125 12/12/16 04:26 123 12/12/16 04:15 119 12/12/16 04:00 128 12/12/16 03:59 97.9 97 16 96/72 95 12/12/16 03:10 108 12/12/16 03:00 128 12/12/16 02:56 133 12/12/16 02:39 132 12/12/16 02:35 53 12/12/16 02:18 48 12/12/16 02:00 50 12/12/16 01:00 98.1 65 16 118/55 95 12/12/16 01:00 50 12/12/16 00:00 61 12/11/16 23:00 50 12/11/16 22:00 56 12/11/16 21:00 58 12/11/16 20:00 54 12/11/16 20:00 56 18 141/79 94 12/11/16 19:47 Room Air 12/11/16 19:00 68 12/11/16 18:00 65 12/11/16 17:34 95 21 12/11/16 17:02 56 12/11/16 16:18 98.6 57 18 138/81 95 12/11/16 16:00 58 12/11/16 15:00 58 12/11/16 14:00 64 I/O 12/11/16 12/11/16 12/11/16 12/12/16 12/12/16 12/12/16 07:00 15:00 23:00 07:00 15:00 23:00 Intake Total 480 ml 600 ml 240 ml Output Total 1150 ml 1000 ml 800 ml Balance -670 ml -400 ml -560 ml Intake Oral 480 ml 600 ml 240 ml IV Total 0 ml Output Urine Total 1150 ml 1000 ml 800 ml # Bowel Movements 0 1 0 Result Diagram: 12/12/16 0408 12/11/16 0539 Imaging Last Impressions Chest X-Ray 12/09/16 1225 Signed Impressions: Service Date/Time: December 12:28 - CONCLUSION: Normal examination with a markedly elevated left hemidiaphragm. Manuel Burgess MD Objective Remarks GENERAL: This is a well-nourished, well-developed patient, in no apparent distress. SKIN: No rashes, ecchymoses or lesions. Cool and dry. HEAD: Atraumatic. Normocephalic. No temporal or scalp tenderness. EYES: Pupils equal round and reactive. Extraocular motions intact. No scleral icterus. No injection or drainage. ENT: Nose without bleeding, purulent drainage or septal hematoma. Throat without erythema, tonsillar hypertrophy or exudate. Uvula midline. Airway patent. NECK: Trachea midline. No JVD or lymphadenopathy. Supple, nontender, no meningeal signs. CARDIOVASCULAR: Bradycardic without murmurs, gallops, or rubs. RESPIRATORY: Clear to auscultation. Breath sounds equal bilaterally. No wheezes , rales, or rhonchi. GASTROINTESTINAL: Abdomen obese, non-tender, nondistended. No hepato- splenomegaly, or palpable masses. No guarding. MUSCULOSKELETAL: Extremities without clubbing, cyanosis, or edema. No joint tenderness, effusion, or edema noted. NEUROLOGICAL: Awake and alert. Cranial nerves II through XII intact. Motor and sensory grossly within normal limits. Five out of 5 muscle strength in all muscle groups. Normal speech. PSYCH: Mood and affect appropriate. Procedures Cardiac catheterization 12/10. Medications and IVs Current Medications Medications (Trade) Dose Ordered Sig/Adama Route Start Time Stop Time Status Last Admin (NS Flush) 2 ml UNSCH PRN FLUSH 12/09/16 15:30 (NS Flush) 2 ml BID FLUSH 12/09/16 21:00 12/12/16 09:54 (Zofran Inj) 4 mg Q6H PRN IVP 12/09/16 15:30 (Colace) 100 mg Q12H PO 12/09/16 16:00 12/11/16 16:17 (Senokot) 17.2 mg Q12H PRN PO 12/09/16 15:30 (Ambien) 5 mg HS PRN PO 12/09/16 21:00 (Tylenol) 650 mg Q6H PRN PO 12/09/16 15:30 12/12/16 01:18 (Roxicodone) 10 mg Q4H PRN PO 12/09/16 15:30 (Morphine Inj) 4 mg Q3H PRN IV 12/09/16 15:30 (Roxicodone) 5 mg Q4H PRN PO 12/09/16 15:30 (Narcan Inj) 0.4 mg UNSCH PRN IV 12/09/16 15:30 (Vasotec Inj) 1.25 mg Q6H PRN IV PUSH 12/09/16 16:15 (Aspirin Chew) 81 mg DAILY CHEW 12/10/16 09:00 12/12/16 09:54 Patient Own Medication PT OWN MED: CRESTOR... HS PO 12/10/16 21:00 Hold (NS Flush) 2 ml UNSCH PRN IVF 12/10/16 09:45 (NS Flush) 2 ml BID IVF 12/10/16 21:00 (Plavix) 75 mg DAILY PO 12/11/16 09:00 12/12/16 09:55 (Eliquis) 5 mg BID PO 12/10/16 21:00 12/12/16 09:54 (Toprol Xl) 25 mg DAILY PO 12/12/16 09:00 (Prinivil) 10 mg DAILY PO 12/12/16 09:00 12/12/16 09:59 A/P Assessment and Plan NSTEMI The patient developed chest pain in the center of his chest. Troponin was elevated up to 4.[address] depressions in V4, V5 and V6. Cardiology was consulted and recommended a heparin drip. The patient received aspirin en route to the hospital. S/p cardiac cath and stent placement to the 12/10. - Monitor on telemetry. - Follow up with cardiology. - Continue ASA, Plavix, metoprolol, ACEi and statin. Beta joao has been on hold in the setting of bradycardia. - Pain control with a bowel regimen. - Oxygen as needed. Atrial fibrillation/ Bradycardia The patient has been bradycardic while on metoprolol and then he went into A. fib with RVR while off of metoprolol. He responded to IV diltiazem. - Telemetry. - Halve metoprolol succinate to 25 mg daily with holding parameters. - Continue Eliquis. - Follow up with cardiology. Consider pacemaker. Probable EPHRAIM The patient's family reports that the patient sometimes stops breathing for periods of time in his sleep. Oxygen saturation also tends to drop during sleeping. The patient is morbidly obese. The patient likely has undiagnosed sleep apnea. - Outpatient sleep study recommended. - Weight loss recommended. DM New diagnosis. A1c level 6.7%. Dietary consult appreciated. - lifestyle modifications recommended. - follow up as an outpt. HTN Blood pressure has been low recently. - metoprolol reduced as above. - Continue lisinopril 5 mg daily and adjust as needed. - Vasotec as needed. PPx: Heparin. Discharge Planning Awaiting further cardiac evaluation. Cristiano Tam DO Dec 12, 2016 13:52
--- NOTE | 2016-12-12 14:02 | MA ---
cc: ZEUS COSTELLO DO DATE: 12/10/2016 PROCEDURE Left heart catheterization, left ventriculogram, coronary angiogram, Resolute drug-eluting stent (3 x 15) to first obtuse marginal. PREPROCEDURE DIAGNOSIS N-STEMI. POSTPROCEDURE DIAGNOSIS N-STEMI, coronary artery disease status post Resolute drug-eluting stent (3 x 15) to the first obtuse marginal. MEDICATIONS 1. Verapamil 2.5. 2. Nitro 200 mcg. 3. Versed half a mg. 4. Fentanyl 25 mcg. 5. Heparin 1300 units. 6. Brilinta 180 mg. CONTRAST USED 225 ccs. FLUOROSCOPY 9.4 minutes. SEDATION Conscious sedation provided: 45 minutes. ESTIMATED BLOOD LOSS 10 ccs. PROCEDURAL SUMMARY Cesar Kearns is a pleasant 66-year-old male who came in with chest pain concerning for coronary insufficiency. He was found to have an elevated troponin and due to his N-STEMI and chest pain, it was felt that he should undergo coronary visualization. Risks, benefits and alternatives were explained to him and he consented as such. He was brought to the lab and prepped in the usual sterile fashion. The right radial artery was accessed using a modified Seldinger technique and placement of a slender 5/6 sheath. JR-4 was advanced to the ascending aorta and across the aortic valve with measurement of the left ventricular pressure. LV gram shows normal LV function with an ejection fraction of 60%. JR-4 was then pulled back across the aortic valve showing no significant gradient of aortic stenosis. JR-4 was then used for selective angiography of the right coronary artery which shows a normal-appearing vessel with mild tortuosity and no significant disease. JR-4 was then exchanged for a JL-3.5. This was used for selective angiography of the left coronary system. Left main is a normal-appearing vessel and trifurcates into an LAD, small ramus and left circumflex. The LAD is a normal-appearing vessel with 10% diffuse disease. It does give off three small diagonal vessels. The ramus is a very small vessel with mild disease. Left circumflex is a large vessel with a 30% lesion in the proximal portion. It gives off one obtuse marginal, it has a 95% lesion. It was felt that this was the culprit vessel for the patient's N-STEMI. INTERVENTION The JL-3.5 was exchanged for an EBU 3.5. Heparin was used as anticoagulation and ACTs were checked being over 300 throughout the case. EBU was engaged in left main and a BMW wire was then advanced into the distal obtuse marginal. A compliant balloon (2.75 x 12) was then inflated over the lesion. This was then exchanged for a Resolute drug-eluting stent (3 x 15) which was inflated over the lesion. This was then exchanged for a noncompliant balloon (3.25 x 8) which was inflated across the length of the stent. Post shots show a well opposed stent but does have one area of mild disease. Because of this a noncompliant balloon (3.5 x 8) was then inflated at high pressure over this area. Post inflation shots show a well opposed stent with no dissection or perforations. BMW wire was then removed. EBU was then removed over a J-wire. A TR band was then placed over the radial arteriotomy site with removal of the sheath as pressure was placed on it to create hemostasis. The patient was loaded with Brilinta 180 mg. The patient left the cardiac catheterization lab cardiovascularly stable. IMPRESSION 1. N-STEMI. 2. Coronary artery disease status post Resolute drug-eluting stent (3 x 15) to the first obtuse marginal. 3. Atrial fibrillation. RECOMMENDATIONS 1. Cesar will be placed on dual antiplatelet therapy with aspirin indefinitely and Brilinta for at least 12 months. Because of his atrial fibrillation if he does decide on anticoagulation we may change Brilinta to Plavix due to bleeding profile with triple therapy. 2. I will discuss with him and his further about anticoagulation. As of yesterday they were unsure based on previous conversations they had with their disposition clerk. 3. Will check a 2-D echo to look at his overall left ventricular function, cardiac structure and overall valvulopathies. 4. Further recommendations based on hospital course. Thank you for allowing me to see Cesar Kearns, if there are any questions, please do not hesitate to call. Zeus Costello DO VGP/TLL /12:17 PM /1:40 PM
[2016-12-12 18:53] LABS: BICARBONATE 30.2 MEQ/L (21.0-32.0); MAGNESIUM 2.3 MG/DL (1.5-2.5); POTASSIUM 4.1 MEQ/L (3.5-5.1)
[2016-12-13] VITALS (13 sets, daily range): BP systolic 98–143; BP diastolic 49–77; PULSE 56–79; RESP 14–18; TEMP 98.2–98.3; O2SAT 92–95
[2016-12-13] MEDS: DOCUSATE SODIUM 100 MG CAP PO SCH (03:48)
[2016-12-13] MEDS: CLOPIDOGREL 75 MG TAB PO SCH (08:28)
[2016-12-13] MEDS: SODIUM CHLORIDE 0.9% FLUSH 5 ML FLUSH IVF SCH (08:29)
[2016-12-13] MEDS: ASPIRIN 81 MG CHEW TAB CHEW SCH (08:29)
[2016-12-13] MEDS: METOPROLOL SUCCINATE 50 MG EXTENDED RELEASE TAB PO SCH (08:29)
[2016-12-13] MEDS: APIXABAN 5 MG TABLET PO SCH (08:29)
[2016-12-13] MEDS: SODIUM CHLORIDE 0.9% FLUSH 5 ML FLUSH FLUSH SCH (08:29)
[2016-12-13] MEDS ORDERED: LISINOPRIL 5 MG TAB PO SCH (09:00)
--- NOTE | 2016-12-13 10:20 | EKG ---
Date Performed: 12/12/2016 Time Performed: 13:26:30 PTAGE: 66 years EKG: Sinus bradycardia. Normal ECG except for rate Compared to prior tracing no significant jean-baptiste javier PREVIOUS TRACING : 12/09/2016 12.03 DOCTOR: Hari Escobar Interpretating Date/Time 12/13/2016 10:17:49
--- NOTE | 2016-12-13 10:50 | PD.CARD.PN ---
Subjective Subjective Remarks No events over night, no chest pain, no shortness of breath Objective Medications Current Medications Medications (Trade) Dose Ordered Sig/Adama Route Start Time Stop Time Status Last Admin (NS Flush) 2 ml UNSCH PRN FLUSH 12/09/16 15:30 (NS Flush) 2 ml BID FLUSH 12/09/16 21:00 12/13/16 08:29 (Zofran Inj) 4 mg Q6H PRN IVP 12/09/16 15:30 (Colace) 100 mg Q12H PO 12/09/16 16:00 12/12/16 16:33 (Senokot) 17.2 mg Q12H PRN PO 12/09/16 15:30 (Ambien) 5 mg HS PRN PO 12/09/16 21:00 (Tylenol) 650 mg Q6H PRN PO 12/09/16 15:30 12/12/16 01:18 (Roxicodone) 10 mg Q4H PRN PO 12/09/16 15:30 (Morphine Inj) 4 mg Q3H PRN IV 12/09/16 15:30 (Roxicodone) 5 mg Q4H PRN PO 12/09/16 15:30 (Narcan Inj) 0.4 mg UNSCH PRN IV 12/09/16 15:30 (Vasotec Inj) 1.25 mg Q6H PRN IV PUSH 12/09/16 16:15 (Aspirin Chew) 81 mg DAILY CHEW 12/10/16 09:00 12/13/16 08:29 Patient Own Medication PT OWN MED: CRESTOR... HS PO 12/10/16 21:00 Hold (NS Flush) 2 ml UNSCH PRN IVF 12/10/16 09:45 (NS Flush) 2 ml BID IVF 12/10/16 21:00 (Plavix) 75 mg DAILY PO 12/11/16 09:00 12/13/16 08:28 (Eliquis) 5 mg BID PO 12/10/16 21:00 12/13/16 08:29 (Toprol Xl) 25 mg DAILY PO 12/12/16 09:00 12/13/16 08:29 (Prinivil) 5 mg DAILY PO 12/13/16 09:00 12/13/16 08:29 Vital Signs / I&O Vital Signs Date Time Temp Pulse Resp B/P Pulse Ox O2 Delivery O2 Flow Rate FiO2 12/13/16 10:03 75 12/13/16 09:27 79 12/13/16 08:15 98.3 74 18 143/77 92 12/13/16 08:15 59 12/13/16 08:15 92 Room Air 12/13/16 05:00 70 12/13/16 04:50 98.3 67 14 115/73 94 12/13/16 04:00 71 12/13/16 03:00 56 12/13/16 02:00 62 12/13/16 01:00 76 12/13/16 00:52 67 18 98/49 95 12/13/16 00:00 61 12/12/16 23:00 66 12/12/16 22:00 62 12/12/16 21:07 98.3 66 14 132/73 94 12/12/16 21:00 52 12/12/16 20:00 57 12/12/16 19:46 94 Room Air 12/12/16 18:12 68 12/12/16 17:22 94 21 12/12/16 17:00 68 12/12/16 16:00 63 12/12/16 15:00 61 12/12/16 15:00 98.3 64 17 142/69 94 12/12/16 14:00 61 12/12/16 13:00 61 12/12/16 12:00 48 12/12/16 11:00 58 12/12/16 11:00 98.7 58 17 125/81 93 I/O 12/12/16 12/12/16 12/12/16 12/13/16 12/13/16 12/13/16 07:00 15:00 23:00 07:00 15:00 23:00 Intake Total 240 ml 710 ml 480 ml Output Total 800 ml 500 ml Balance -560 ml 710 ml -20 ml Intake Oral 240 ml 710 ml 480 ml IV Total 0 ml 0 ml Output Urine Total 800 ml 500 ml # Voids 5 # Bowel Movements 0 1 0 Physical Exam GENERAL: NAD, AAOx3 SKIN: Warm and dry. HEAD: Atraumatic. Normocephalic. EYES: Pupils equal and round. No scleral icterus. No injection or drainage. ENT: No nasal bleeding or discharge. Mucous membranes pink and moist. NECK: Trachea midline. No JVD. CARDIOVASCULAR: Regular rate and rhythm. RESPIRATORY: No accessory muscle use. Clear to auscultation. Breath sounds equal bilaterally. GASTROINTESTINAL: Abdomen soft, non-tender, nondistended. Hepatic and splenic margins not palpable. MUSCULOSKELETAL: Extremities without clubbing, cyanosis, or edema. No obvious deformities. Right radial no hematoma, neurovascularly intact distally NEUROLOGICAL: Awake and alert. No obvious cranial nerve deficits. Motor grossly within normal limits. Five out of 5 muscle strength in the arms and legs. Normal speech. PSYCHIATRIC: Appropriate mood and affect; insight and judgment normal. Laboratory Laboratory Tests Test 12/12/16 18:13 Sodium Level 138 MEQ/L Potassium Level 4.1 MEQ/L Chloride Level 98 MEQ/L Carbon Dioxide Level 30.2 MEQ/L Anion Gap 10 MEQ/L Blood Urea Nitrogen 20 MG/DL Creatinine 1.50 MG/DL Estimat Glomerular Filtration 47 ML/MIN Rate Random Glucose 140 MG/DL Calcium Level 9.3 MG/DL Magnesium Level 2.3 MG/DL Assessment and Plan Problem List: (1) Non-ST elevation myocardial infarction (NSTEMI) (2) Atrial fibrillation (3) Hypertension Assessment and Plan 1) NSTEMI/CAD s/p LEVON to OM1 2) ASA/Brilinta/BB/Statin 3) CHADSVASC2 = 4 (HTN, age, recent [place], newly diagnosed DM) started on Eliquis 5mg BID 4) Will go home on triple therapy, discussed with him the risk and benefits of this and he understands 5) Episodes of bradycardia while sleeping, most likely due to EPHRAIM... had a pause of 2-3 seconds 6) Also had one episode of afib requiring IV Cardizem 7) Would continue lower dose of Metoprolol as he's asymptomatic from bradycardia /pause standpoint 8) Although he may be a SSS/Tachy-Jefferson... would have him get worked up for a EPHRAIM first, as treatment might decrease his overall events of bradycardia/AF with RVR 9) Cardiovascularly stable for discharge today... understands if he episodes where he's symptomatic (whether bradycardic or AF with RVR) will go to the nearest ER 10) He's setting up an EPHRAIM evaluation as soon as possible 11) Understands he needs a sand conditioner machine to see him as soon as possible, if he has trouble finding one, will set up to see me as he is in [place] quite often 12) Did discuss consideration of PPM for Tachy-Jefferson, as well as Afib ablation... will hold off at this time until EPHRAIM work up, which may decrease events Zeus Phelps DO Dec 13, 2016 10:50
[2016-12-13] MEDS ORDERED: LISI-519 PO (12:51)
--- NOTE | 2016-12-13 12:53 | HHI.DS ---
Discharge Summary Admission Date Dec 09, 2016 at 14:29 Discharge Date: Dec 13, 2016 Admitting Diagnosis NSTEMI (1) Bradycardia ICD Code: R00.1 (2) Non-ST elevation myocardial infarction (NSTEMI) ICD Code: I21.4 Diagnosis: Principal (3) Hypertension ICD Code: I10 (4) Atrial fibrillation ICD Code: I48.91 Procedures Cardiac catheterization 12/10. Brief History - From Admission The patient is a 66-year-old male with past medical history of atrial fibrillation and hypertension who is presenting to the hospital with chest pain. He said he was sitting down this morning when all of a sudden he developed chest pain in the center of his chest. He said the sensation was stabbing in nature and he rated the pain as an 8 out of 10 in severity. He said once the chest pain occurred it stayed. He did not have any sweating or shortness of breath associated with it. He also denied any palpitations. He did feel tired during the episode. He called for EMS and refused the nitroglycerin because he has had a bad experience with that in the past. He said he has had chest pain which turned out to be secondary to hiatal hernia and when he received nitroglycerin at that time he had a significant headache. The patient received aspirin and was transported to the hospital. He said his chest pain has since gone away. He says he had an echocardiogram done within the past year secondary to his atrial fibrillation. He said he was started on metoprolol and since he has been on that he has not had palpitations. He says he takes aspirin but not every day. He says he has a poor diet and does not exercise. He also endorses symptoms consistent with sleep apnea. CBC/BMP: 12/12/16 0408 12/12/16 1813 Significant Findings Laboratory Tests Test 12/11/16 12/12/16 05:39 18:13 Monocytes (%) (Auto) 10.0 % (0.0-8.0) Estimat Glomerular Filtration 77 ML/MIN (>89) 47 ML/MIN (>89) Rate Random Glucose 107 MG/DL 140 MG/DL (74-106) (74-106) Blood Urea Nitrogen 20 MG/DL (7-18) Creatinine 1.50 MG/DL (0.60-1.30) Imaging Last Impressions Chest X-Ray 12/09/16 8215 Signed Impressions: Service Date/Time: December 12:28 - CONCLUSION: Normal examination with a markedly elevated left hemidiaphragm. Manuel Burgess MD PE at Discharge GENERAL: This is a well-nourished, well-developed patient, in no apparent distress. SKIN: No rashes, ecchymoses or lesions. Cool and dry. HEAD: Atraumatic. Normocephalic. No temporal or scalp tenderness. EYES: Pupils equal round and reactive. Extraocular motions intact. No scleral icterus. No injection or drainage. ENT: Nose without bleeding, purulent drainage or septal hematoma. Throat without erythema, tonsillar hypertrophy or exudate. Uvula midline. Airway patent. NECK: Trachea midline. No JVD or lymphadenopathy. Supple, nontender, no meningeal signs. CARDIOVASCULAR: Bradycardic without murmurs, gallops, or rubs. RESPIRATORY: Clear to auscultation. Breath sounds equal bilaterally. No wheezes , rales, or rhonchi. GASTROINTESTINAL: Abdomen obese, non-tender, nondistended. No hepato- splenomegaly, or palpable masses. No guarding. MUSCULOSKELETAL: Extremities without clubbing, cyanosis, or edema. No joint tenderness, effusion, or edema noted. NEUROLOGICAL: Awake and alert. Cranial nerves II through XII intact. Motor and sensory grossly within normal limits. Five out of 5 muscle strength in all muscle groups. Normal speech. PSYCH: Mood and affect appropriate. Pt update on day of discharge The patient wanted to be discharged. He said he will try to follow up with cardiology in [place] and if he can't find a glass fitter she will follow up with Dr. Phelps here. Family at the bedside. He had no acute complaints. Discussed with nursing. Their questions were answered. Hospital Course NSTEMI The patient developed chest pain in the center of his chest. Troponin was elevated up to 4.[address] depressions in V4, V5 and V6. Cardiology was consulted and recommended a heparin drip. The patient received aspirin en route to the hospital. S/p cardiac cath and stent placement to the 12/10. He was monitored on telemetry. He was continued on ASA, Plavix, metoprolol, ACEi and statin. He received pain control with a bowel regimen. He will follow up with cardiology. Atrial fibrillation/ Bradycardia The patient has been bradycardic and had sinus pauses while on metoprolol and then he went into A. fib with RVR while off of metoprolol. He responded to IV diltiazem. Telemetry. We halved metoprolol succinate to 25 mg daily with holding parameters. He continued to do well. He was started on Eliquis. He will follow up with cardiology as an outpt. Probable EPHRAIM The patient's family reports that the patient sometimes stops breathing for periods of time in his sleep. Oxygen saturation also tends to drop during sleeping. The patient is morbidly obese. Outpatient sleep study recommended. The pt is agreeable. Weight loss was recommended. DM New diagnosis. A1c level 6.7%. Complex Human Resources Manager was consulted. Lifestyle modifications were recommended. He was encouraged to have a repeat A1c for confirmation. He will follow up with his PCP. Pt Condition on Discharge: Good Discharge Disposition: Discharge Home Discharge Time: > 30 minutes Discharge Instructions DIET: Follow Instructions for: Heart Healthy Diet, Diabetic Diet Activities you can perform: Weight Bearing as Bryce Follow up Referrals: Cardiology - 1 Week PCP Follow-up - 1 Week New Orders: HEMOGLOBIN A1C - 1 Week Sleep Study - 1 Week New Medications: Aspirin DR (Aspirin EC) 81 Mg Tabdr 81 MG PO DAILY Heart #30 Ref 0 TAB Apixaban (Eliquis) 5 Mg Tab 5 MG PO BID Atrial fibrillation #60 TAB Clopidogrel (Plavix) 75 Mg Tab 75 MG PO DAILY Heart #30 TAB Lisinopril (Lisinopril) 5 Mg Tab 5 MG PO DAILY Blood Pressure Management #30 TAB Metoprolol Succinate ER 24 HR (Metoprolol Succinate ER 24 HR) 50 Mg Tab 25 MG PO DAILY Heart #30 TAB Continued Medications: Rosuvastatin (Crestor) 10 Mg Tab 10 MG PO HS Cholesterol Management #30 Ref 0 TAB Discontinued Medications: Metoprolol Succinate ER 24 HR (Metoprolol Succinate ER 24 HR) 50 Mg Tab 50 MG PO DAILY #30 Ref 0 TAB Cristiano Tam DO Dec 13, 2016 12:53
--- NOTE | 2017-01-04 22:30 | PD.CARD.CA ---
Cardiac Catheterization Procedure Date: Dec 10, 2016 Procedure Note: Addendum to previous cardiac catheterization from 12/10/16: Lesion length 12mm Pre-MUSTAPHA flow 3 Post-MUSTAPHA flow 3 Zeus Phelps DO Jan 04, 2017 22:30
== END 2016-12-13 13:24 | disposition home or self-care (01) | DRG 247 ==
LOC: NEPC 11:39 → NEDH 14:29 → HCIN 20:23
PROVIDERS: ADMIT Hospitalist; ATTEND Hospitalist
PROC: 4A023N7 Measurement of Cardiac Sampling and Pressure, Left Heart, Percutaneous Approach (ICD-10-PCS; 2016-12-10)
PROC: B2111ZZ Fluoroscopy of Multiple Coronary Arteries using Low Osmolar Contrast (ICD-10-PCS; 2016-12-10)
PROC: B2151ZZ Fluoroscopy of Left Heart using Low Osmolar Contrast (ICD-10-PCS; 2016-12-10)
PROC: 027034Z Dilation of Coronary Artery, One Artery with Drug-eluting Intraluminal Device, Percutaneous Approach (ICD-10-PCS; principal; 2016-12-10 08:30)
DX: I21.4 Non-ST elevation (NSTEMI) myocardial infarction (principal); I48.0 Paroxysmal atrial fibrillation; E11.65 Type 2 diabetes mellitus with hyperglycemia; R00.1 Bradycardia, unspecified; Z68.41 Body mass index [BMI] 40.0-44.9, adult; E66.01 Morbid (severe) obesity due to excess calories; G47.33 Obstructive sleep apnea (adult) (pediatric); I10 Essential (primary) hypertension; E78.5 Hyperlipidemia, unspecified; K44.9 Diaphragmatic hernia without obstruction or gangrene; I25.10 Atherosclerotic heart disease of native coronary artery without angina pectoris; Z79.82 Long term (current) use of aspirin
CPT/HCPCS: 71010; 80048; 80061; 82550; 83036; 83735; 84484; 85002; 85025; 85027; 85610; 85730; 92928; 93005; 93306; 93458; C1725; C1769; C1874; C1887; C1893; J1644; J2250; J3010; Q9967